=== PATIENT | female | born 2000 | race Hispanic/Latino ===

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

== ENCOUNTER 2020-07-17 13:39 | Emergency (ER) | payer BC, OTHER ==
--- OUTSIDE RECORDS SUMMARY | 2020-07-17 13:42 | XMS REPORT | Continuity of Care Document ---
:2000 Author Organization [facility] t Address [address] [place] [address] Care Team Providers Name Role Phone Ruddy Sarkar Attending Clinician Problems This patient has no known problems. Allergies, Adverse Reactions, Alerts This patient has no known allergies or adverse reactions. Medications This patient has no known medications. Procedures This patient has no known procedures. Encounters Start End Encounter Admission Attending Care Care Encounter Source Date/Time Date/Time Type Type Clinicians Facility Department ID 2020-07-15 2020-07-15 Routine ZAHEER Warren [id number] 07:55:25 08:43:04 Odalys Fox [facility] [id number] Visit REGIONAL [id number] MATERNAL [id number] & CHILD [address] [place] [address] Results This patient has no known results.
--- NOTE | 2020-07-17 14:48 | RAD REPORT ---
EXAM DESCRIPTION: RAD - Hand Right 3 View - 07/17/2020 2:41 pm CLINICAL HISTORY: hand injury, 4th finger COMPARISON: No comparisons FINDINGS: Small fracture is seen involving dorsal base of the distal phalanx of the fourth finger.
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
[2020-07-17 17:02] VITALS: TEMP 98.6
[2020-07-17 17:03] VITALS: BP 102/71; O2SAT 98
== END 2020-07-17 16:35 | disposition home or self-care (01) ==
LOC: ER 13:39
PROC: 2W3JX1Z Immobilization of Right Finger using Splint (ICD-10-PCS; principal; 2020-07-17)
DX: S62.666A Nondisplaced fracture of distal phalanx of right little finger, initial encounter for closed fracture (principal)
CPT/HCPCS: 99281

== ENCOUNTER 2021-08-26 21:46 | Emergency (ER) | payer BC, OTHER ==
[2021-08-26] MEDS ORDERED: ACETAMINOPHEN 500 MG TAB ONE (23:02)
[2021-08-26] MEDS ORDERED: NA CHLORIDE 0.9% 1,000 ML ONE (23:02)
[2021-08-26 23:23] LABS: Absolute Lymphocytes (CBC) 0.3 K/uL (0.7-4.9); Hematocrit 41.3 % (36.0-45.0); Lymphocytes % 7.1 % (15.3-44.8); MPV 9.1 fL (7.6-11.3); RBC Red Blood Cell Count 5.12 M/uL (3.86-4.86)
[2021-08-26 23:25] LABS: Protime INR 1.18
--- NOTE | 2021-08-27 00:16 | ER ---
Nurse's Notes [facility] Name: Pastora Strauss Age: 20 yrs Sex: Female : 2000 Arrival Date: 08/26/2021 Time: 21:56 Bed 25 Private MD: Diagnosis: SARS-associated coronavirus as the cause of diseases classified elsewhere Presentation: 08/26 22:22 Chief complaint: Patient states: last night I started getting a horrible headache and kd3 today I woke up and still had a headache and a runny nose and I just feel really sick. I took a home covid test yesterday and it was negative but the one I took today was positive. Coronavirus screen: Vaccine status: Patient reports receiving the 2nd dose of the covid vaccine. Ebola Screen: No symptoms or risks identified at this time. Initial Sepsis Screen: Does the patient meet any 2 criteria? Temp <36.0*C (96.8*F)) or > 38.3*C (100.9*F). HR > 90 bpm. Yes Does the patient have a suspected source of infection? No. Patient's initial sepsis screen is negative. Risk Assessment: Do you want to hurt yourself or someone else? Patient reports no desire to harm self or others. Onset of symptoms was August 26, 2021. 22:22 Method Of Arrival: Ambulatory kd3 22:22 Acuity: KRISTI 3 kd3 Triage Assessment: 22:22 Headache History: Denies prior headaches. General: Appears uncomfortable, Behavior is kd3 calm, cooperative. Pain: Complains of pain in headache Pain currently is 7 out of 10 on a pain scale. Pain began gradually, Also complains of no other associated symptoms. Neuro: Level of Consciousness is awake, alert, obeys commands, Oriented to person, place, time, situation. Respiratory: Airway is patent Trachea midline Respiratory effort is even, unlabored. 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 - Social history:: Smoking status: unknown. Screenin:15 Abuse screen: Denies threats or abuse. Nutritional screening: No deficits noted. jb4 Tuberculosis screening: No symptoms or risk factors identified. Fall Risk None identified. Assessment: 22:15 General: Appears in no apparent distress. comfortable, Behavior is calm, cooperative, jb4 appropriate for age. Pain: Complains of pain in headache Pain does not radiate. Pain currently is 5 out of 10 on a pain scale. Neuro: Level of Consciousness is awake, alert, obeys commands, Oriented to person, place, time, situation. Cardiovascular: Patient's skin is warm and dry. Respiratory: Airway is patent Respiratory effort is even, unlabored, Respiratory pattern is regular, symmetrical. Derm: Skin is intact, Skin is pink, warm \T\ dry. Musculoskeletal: Circulation, motion, and sensation intact. Range of motion: intact in all extremities. 23:30 Reassessment: Patient appears in no apparent distress at this time. Patient and/or jb4 family updated on plan of care and expected duration. Pain level reassessed. Patient is alert, oriented x 3, equal unlabored respirations, skin warm/dry/pink. 08/27 00:35 Reassessment: Patient appears in no apparent distress at this time. Patient and/or jb4 family updated on plan of care and expected duration. Pain level reassessed. Patient is alert, oriented x 3, equal unlabored respirations, skin warm/dry/pink. Vital Signs: 08/26 22:22 BP 118 / 75; Pulse 120; Resp 19; Temp 103; Pulse Ox 98% on R/A; kd3 22:28 Weight 88.45 kg; Height 5 ft. 7 in. (170.18 cm); Pain 7/10; kd3 08/27 00:13 BP 106 / 65; Pulse 109; Resp 18; Temp 100.2(TE); Pulse Ox 97% on R/A; jb4 08/26 22:28 Body Mass Index 30.54 (88.45 kg, 170.18 cm) 3 ED Course: 08/26 21:56 Patient arrived in ED. ja2 22:13 Francois Olea MD is Attending Physician. kdr 22:15 Patient has correct armband on for positive identification. Bed in low position. Call jb4 light in reach. Side rails up X 1. Client placed on continuous cardiac and pulse oximetry monitoring. NIBP monitoring applied. 22:24 Triage completed. kd3 22:29 Arm band placed on right wrist. kd3 22:31 [place], Gabe, RN is Primary Nurse. jb4 23:12 Inserted saline lock: 22 gauge in right antecubital area, using aseptic technique. Blood collected. 23:13 Blood Culture Adult (2) Sent. zm 23:13 CBC with Diff Sent. zm 23:13 CMP Sent. zm 23:13 Lactate Sent. zm 23:13 Protime (+inr) Sent. zm 23:13 Ptt, Activated Sent. zm 08/27 00:35 No provider procedures requiring assistance completed. IV discontinued, intact, jb4 bleeding controlled, No redness/swelling at site. Pressure dressing applied. Administered Medications: 08/26 22:53 Not Given (Duplicate Order): Tylenol 1000 mg PO once jb4 23:00 Drug: Acetaminophen 1000 mg Route: PO; jb4 08/27 00:13 Follow up: Response: No adverse reaction; Marked relief of symptoms; Temperature is jb4 decreased 08/26 23:01 Drug: NS 0.9% 1000 ml Route: IV; Rate: 1 bolus; Site: right antecubital; jb4 23:10 CANCELLED (Physician Discretion): ProTONIX (pantoprazole) 40 mg IVP once bb 23:10 CANCELLED (Physician Discretion): ProTONIX (pantoprazole) 8 mg/hr IV at 25 ml/hr bb continuous; (Standard dilution is 80 mg in 250 mL NS) 08/27 00:13 Not Given (Patient Refused): Bebtleovimab 1 vials IV at calculated rate once jb4 Medication: 00:35 VIS not applicable for this client. jb4 Outcome: 00:15 Discharge ordered by . kdr 00:35 Discharged to home ambulatory. jb4 00:35 Condition: stable 00:35 Discharge instructions given to patient, Instructed on discharge instructions, follow up and referral plans. medication usage, Demonstrated understanding of instructions, follow-up care, medications, Prescriptions given X 2. 00:35 Patient left the ED. jb4 Signatures: Francois Olea MD MD kdr Bryson, James, RN RN jb4 Izzy Huizar Kyli, RN RN kd3 Svitlana Garcia Brenda RN bb
--- NOTE | 2021-08-27 00:16 | EDPHYS ---
Physician Documentation [facility] Name: Pastora Strauss Age: 20 yrs Sex: Female : 2000 Arrival Date: 08/26/2021 Time: 21:56 Bed 25 Private MD: ED Physician Francois Olea HPI: 08/27 19:41 This 20 yrs old Female presents to ER via Ambulatory with complaints of Fever, kdr Headache, Sore Throat. 19:41 The patient started to have URI s/s yesterday with a JOAQUIN. She took a home COVID test kdr that was negative. She continued to have s/s and she retook a COVID test today and it was positive. She is o/w stable and non-toxic appearing.. Onset: The symptoms/episode began/occurred yesterday. Severity of symptoms: At their worst the symptoms were mild moderate just prior to arrival, in the emergency department the symptoms are unchanged. The patient has not experienced similar symptoms in the past. The patient has not recently seen a physician. 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 - Social history:: Smoking status: unknown. ROS: 08/27 19:41 Constitutional: Negative for fever, chills, and weight loss, Eyes: Negative for injury, kdr pain, redness, and discharge, Neck: Negative for injury, pain, and swelling, Cardiovascular: Negative for chest pain, palpitations, and edema, Respiratory: Negative for shortness of breath, cough, wheezing, and pleuritic chest pain, Abdomen/GI: Negative for abdominal pain, nausea, vomiting, diarrhea, and constipation, Back: Negative for injury and pain, : Negative for injury, bleeding, discharge, and swelling, MS/Extremity: Negative for injury and deformity, Skin: Negative for injury, rash, and discoloration, Neuro: Negative for headache, weakness, numbness, tingling, and seizure activity. Psych: Negative for depression, anxiety, suicide ideation, homicidal ideation, and hallucinations, Allergy/Immunology: Negative for hives, rash, and allergies, Endocrine: Negative for neck swelling, polydipsia, polyuria, polyphagia, and marked weight changes, Hematologic/Lymphatic: Negative for swollen nodes, abnormal bleeding, and unusual bruising. Constitutional: Positive for chills, fatigue, fever, malaise, Negative for ENT: Positive for nasal discharge, sore throat. Exam: 19:41 Constitutional: This is a well developed, well nourished patient who is awake, alert, kdr and in no acute distress. Head/Face: Normocephalic, atraumatic. Eyes: Pupils equal round and reactive to light, extra-ocular motions intact. Lids and lashes normal. Conjunctiva and sclera are non-icteric and not injected. Cornea within normal limits. Periorbital areas with no swelling, redness, or edema. Neck: Trachea midline, no thyromegaly or masses palpated, and no cervical lymphadenopathy. Supple, full range of motion without nuchal rigidity, or vertebral point tenderness. No Meningismus. Chest/axilla: Normal chest wall appearance and motion. Nontender with no deformity. No lesions are appreciated. Cardiovascular: Regular rate and rhythm with a normal S1 and S2. No gallops, murmurs, or rubs. Normal PMI, no JVD. No pulse deficits. Respiratory: Lungs have equal breath sounds bilaterally, clear to auscultation and percussion. No rales, rhonchi or wheezes noted. No increased work of breathing, no retractions or nasal flaring. Abdomen/GI: Soft, non-tender, with normal bowel sounds. No distension or tympany. No guarding or rebound. No evidence of tenderness throughout. Back: No spinal tenderness. No costovertebral tenderness. Full range of motion. Skin: Warm, dry with normal turgor. Normal color with no rashes, no lesions, and no evidence of cellulitis. MS/ Extremity: Pulses equal, no cyanosis. Neurovascular intact. Full, normal range of motion. Neuro: Awake and alert, GCS 15, oriented to person, place, time, and situation. Cranial nerves II-XII grossly intact. Motor strength 5/5 in all extremities. Sensory grossly intact. Cerebellar exam normal. Normal gait. Psych: Awake, alert, with orientation to person, place and time. Behavior, mood, and affect are within normal limits. Vital Signs: 08/26 22:22 BP 118 / 75; Pulse 120; Resp 19; Temp 103; Pulse Ox 98% on R/A; kd3 22:28 Weight 88.45 kg; Height 5 ft. 7 in. (170.18 cm); Pain 7/10; kd3 08/27 00:13 BP 106 / 65; Pulse 109; Resp 18; Temp 100.2(TE); Pulse Ox 97% on R/A; jb4 08/26 22:28 Body Mass Index 30.54 (88.45 kg, 170.18 cm) kd3 MDM: 00:15 Patient medically screened. kdr 19:41 Data reviewed: vital signs, nurses notes, lab test result(s), radiologic studies. kdr Counseling: I had a detailed discussion with the patient and/or guardian regarding: the historical points, exam findings, and any diagnostic results supporting the discharge/admit diagnosis, lab results, radiology results, the need for outpatient follow up. 08/26 22:14 Order name: COVID-19 SARS RT PCR (Document "Date of Onset" if Symptomatic); Complete kdr Time: 00:16 08/26 22:14 Order name: Flu; Complete Time: 00:16 kdr 08/26 22:14 Order name: Strep; Complete Time: 00:16 kdr 08/26 22:23 Order name: Blood Culture Adult (2) kdr 08/26 22:23 Order name: CBC with Diff; Complete Time: 00:16 kdr 08/26 22:23 Order name: CMP kdr 08/26 22:23 Order name: Lactate; Complete Time: 00:16 kdr 08/26 22:23 Order name: Protime (+inr); Complete Time: 00:16 kdr 08/26 22:23 Order name: Ptt, Activated; Complete Time: 00:16 kdr 08/26 23:08 Order name: Type And Screen kdr 08/26 23:38 Order name: Throat Culture EDGA 08/26 22:23 Order name: Accucheck; Complete Time: 00:13 kdr 08/26 22:23 Order name: Cardiac monitoring; Complete Time: 23:12 kdr 08/26 22:23 Order name: EKG - Nurse/Tech; Complete Time: 23:13 kdr 08/26 22:23 Order name: IV Saline Lock - Large Bore; Complete Time: 23:02 kdr 08/26 22:23 Order name: Labs collected and sent; Complete Time: 23:02 kdr 08/26 22:23 Order name: O2 Per Protocol; Complete Time: 22:53 kdr 08/26 22:23 Order name: O2 Sat Monitoring; Complete Time: 22:53 kdr Administered Medications: 08/26 22:53 Not Given (Duplicate Order): Tylenol 1000 mg PO once jb4 23:00 Drug: Acetaminophen 1000 mg Route: PO; jb4 08/27 00:13 Follow up: Response: No adverse reaction; Marked relief of symptoms; Temperature is jb4 decreased 08/26 23:01 Drug: NS 0.9% 1000 ml Route: IV; Rate: 1 bolus; Site: right antecubital; jb4 23:10 CANCELLED (Physician Discretion): ProTONIX (pantoprazole) 40 mg IVP once bb 23:10 CANCELLED (Physician Discretion): ProTONIX (pantoprazole) 8 mg/hr IV at 25 ml/hr bb continuous; (Standard dilution is 80 mg in 250 mL NS) 08/27 00:13 Not Given (Patient Refused): Bebtleovimab 1 vials IV at calculated rate once jb4 Disposition Summary: 08/27/21 00:15 Discharge Ordered Location: Home kdr Problem: new kdr Symptoms: have improved kdr Condition: Stable kdr Diagnosis - SARS-associated coronavirus as the cause of diseases classified elsewhere kdr Followup: kdr - With: Private Physician - When: 2 - 3 days - Reason: If symptoms return, Further diagnostic work-up, Recheck today's complaints, Continuance of care, Re-evaluation by your physician Discharge Instructions: - Discharge Summary Sheet kdr - COVID-19 Frequently Asked Questions kdr - 3 Hong Steps to Take While Waiting for Your COVID-19 Test Result - [facility] kdr - 10 Things You Can Do to Manage Your COVID-19 Symptoms at Home - [facility] kdr - COVID-19: Quarantine vs. Isolation - CDC kdr Forms: - Medication Reconciliation Form kdr - Thank You Letter kdr Prescriptions: - Ibuprofen 600 mg Oral Tablet - take 1 tablet by ORAL route every 6 hours As needed take with food; 30 tablet; kdr Refills: 0, Product Selection Permitted - Zofran 4 mg Oral Tablet - take 1 tablet by ORAL route every 4-6 hours As needed; 12 tablet; Refills: 0, kdr Product Selection Permitted Signatures: Dispatcher [employer] EDGA Francois Olea MD MD kdr Gabe Garber RN RN jb4 Macie Jones RN RN kd3 Maryuri Lee RN bb Corrections: (The following items were deleted from the chart) 08/26 23:10 23:08 ProTONIX (pantoprazole) 40 mg IVP once ordered. kdr bb 23:10 23:08 ProTONIX (pantoprazole) 8 mg/hr IV at 25 ml/hr continuous; (Standard dilution is bb 80 mg in 250 mL NS) ordered. kdr 23: 23:09 Abdomen Pelvis W Con+CT.RAD.BRZ ordered. EDMS EDMS 08/27 00:13 08/26 22:23 Urine Dipstick-Ancillary ordered. kdr jb4
[2021-08-27 00:57] LABS: Albumin 4.6 g/dL (3.4-5.0); Bilirubin Total 0.3 mg/dL (0.2-1.0); Potassium 3.4 mmol/L (3.5-5.1); Protein, Total 8.4 g/dL (6.4-8.2)
[2021-08-27] MEDS ORDERED: LIDOCAINE 1% 20 ML MDV ONE (01:23)
[2021-08-27 01:52] VITALS: BP 106/65; TEMP 100.2; O2SAT 97
--- NOTE | 2021-08-27 12:54 | EKG ---
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
== END 2021-08-27 00:35 | disposition home or self-care (01) ==
LOC: ER 21:46
DX: U07.1 COVID-19 (principal)
CPT/HCPCS: 93005; 87040 ×2; 87070; 85025; 36415; 87205; 85610; 87081; 83605; 85730; 80053; 87804 ×2; U0003; J7030

== ENCOUNTER 2023-10-17 00:28 | Emergency (ER) | payer OTHER, SELFPAY ==
[2023-10-17 01:54] LABS: Specific Gravity > 1.030 (1.005-1.030)
[2023-10-17 05:01] LABS: Absolute Basophils 0.1 K/uL (0-0.5); Absolute Eosinophils 0.1 K/uL (0-0.5); Absolute Lymphocytes (CBC) 3.5 K/uL (0.7-4.9); Absolute Monocytes 0.5 K/uL (0.1-1.3); Absolute Neutrophil 5.3 K/uL (1.8-8.0); Basophils % 0.7 % (0-1.3); Eosinophils % 1.5 % (0-4.4); Hematocrit 40.2 % (36.0-45.0); Hemoglobin 13.2 g/dL (12.0-15.0); Lymphocytes % 36.5 % (15.3-44.8); MCH 28.4 pg (27.0-35.0); MPV 8.9 fL (7.6-11.3); Monocytes % 5.6 % (3.3-12.3); Neutrophils % 55.7 % (41.7-73.7); Nucleated Red Blood Cells % 0.1 % (0-0); Platelets 224 thou/uL (152-406); RBC Red Blood Cell Count 4.67 M/uL (3.86-4.86); Red Cell Distribution Width 13.4 % (12.1-15.2)
[2023-10-17 05:09] LABS: PT Prothrombin Time 11.1 SECONDS (9.4-12.5); Protime INR 0.99
[2023-10-17 05:19] LABS: Albumin 3.6 g/dL (3.4-5.0); Anion Gap 9.6 mEq/L (5.0-15.0); Bilirubin Total 0.2 mg/dL (0.2-1.0); Globulin 3.6 g/dL (2.3-3.5); Potassium 3.6 mEq/L (3.5-5.1); Protein, Total 7.2 g/dL (6.4-8.2)
--- NOTE | 2023-10-17 05:20 | EDPHYS ---
Physician Documentation [facility] Name: Pastora Strauss Age: 22 yrs Sex: Female : 2000 Arrival Date: 10/17/2023 Time: 00:28 Bed 5 Private MD: ED Physician Jignesh Mcneil HPI: 10/16 01:15 This 22 yrs old Female presents to ER via Ambulatory with complaints of Rectal ec2 Bleeding. 01:15 Patient arrives today for evaluation of rectal bleeding. States that she had some blood ec2 in her stool when she had a bowel movement, subsequently had to go again and noted. Blood. Patient reports no rectal pain, denies history of similar symptoms. Patient reports no constipation recently. Denies history of IBD.. 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 - Infectious Disease History:: Denies. - Social history:: Smoking status: Patient denies any tobacco usage or history of. ROS: 01:15 Constitutional: as per hpi ec2 Exam: 01:15 Constitutional: GEN: NAD Head: atraumatic Eyes: EOMI Ears: External ears are ec2 normal. CV: regular rate LUNGS: no respiratory distress ABD: non-distended, soft, nontender, not rigid. SKIN: no evidence of rashes MSK: no evidence of trauma Vital Signs: 01:07 BP 122 / 85; Pulse 85; Resp 17; Temp 96.3; Pulse Ox 98% ; Weight 83.91 kg; Height 5 ft. vc1 7 in. ; Pain 0/10; 04:56 BP 108 / 65; Pulse 78; Resp 18; Pulse Ox 99% ; Pain 0/10; jh8 05:24 BP 112 / 67; Pulse 78; Resp 18; Temp 98; Pulse Ox 99% ; Pain 0/10; jh8 01:07 Body Mass Index 28.97 (83.91 kg, 170.18 cm) vc1 01:07 Pain Scale: Adult vc1 04:56 Pain Scale: Adult jh8 05:24 Pain Scale: Adult jh8 MDM: 01:15 Data reviewed: vital signs. ED course: Patient arrives today for evaluation of rectal ec2 bleeding. Examination remarkable for well-appearing nontoxic dividual otherwise in no acute distress. Will obtain lab work, CT imaging. Differential includes diverticulosis, anal fissure, hemorrhoids. Evaluated for anemia as well. . 01:41 Patient medically screened. ec2 03:52 ED course: CT abdomen pelvis shows evidence of diverticulosis without diverticulitis, ec2 suspect this is the source of the patient's bleeding.. 05:12 ED course: CBC is reassuring. Coag profile is unremarkable, testing negative. ec2 . 05:19 ED course: Lab work nonactionable. Will discharge home. Presentation consistent with ec2 diverticulosis. Instructed on fiber intake. Return precautions given. 10/16 01:15 Order name: Test, Urine; Complete Time: 01:56 ec2 10/16 01:15 Order name: CBC with Diff; Complete Time: 05:12 ec2 10/16 01:15 Order name: CMP; Complete Time: 05:19 ec2 10/16 01:15 Order name: PT-INR; Complete Time: 05:12 ec2 18 01:15 Order name: Ptt, Activated; Complete Time: 05:12 ec2 10/16 01:15 Order name: CT Abd/Pelvis - Without Contrast ec2 Administered Medications: No medications were administered Disposition Summary: 10/17/23 05:19 Discharge Ordered Notes: Location: Home ec2 Condition: Stable ec2 Diagnosis - Diverticulosis of large intestine without perforation or abscess with bleeding ec2 Followup: ec2 - With: Private Physician - When: - Reason: Re-evaluation by your physician Discharge Instructions: - Discharge Summary Sheet ec2 - High-Fiber Eating Plan ec2 - Diverticulosis ec2 Forms: - Medication Reconciliation Form ec2 - Antibiotic Education ec2 - Prescription Opioid Use ec2 - Patient Portal Instructions ec2 - Leadership Thank You Letter ec2 Signatures: Dispatcher [employer] Tiffanie Tovar RN RN vc1 Jignesh Mcneil MD MD ec2
--- NOTE | 2023-10-17 05:20 | ER ---
Nurse's Notes [facility] Name: Pastora Strauss Age: 22 yrs Sex: Female : 2000 Arrival Date: 10/17/2023 Time: 00:28 Bed 5 Private MD: Diagnosis: Diverticulosis of large intestine without perforation or abscess with bleeding Presentation: 10/16 01:07 Chief complaint: Patient states: When I wiped after using the restroom I saw blood. vc1 Coronavirus screen: Client denies travel out of the [place] in the last 14 days. At this time, the client does not indicate any symptoms associated with coronavirus-19. Ebola Screen: Patient negative for fever greater than or equal to 101.5 degrees Fahrenheit, and additional compatible Ebola Virus Disease symptoms Patient denies exposure to infectious person. Patient denies travel to an Ebola-affected area in the 21 days before illness onset. No symptoms or risks identified at this time. Initial Sepsis Screen: Does the patient meet any 2 criteria? No. Patient's initial sepsis screen is negative. Does the patient have a suspected source of infection? No. Patient's initial sepsis screen is negative. Risk Assessment: Do you want to hurt yourself or someone else? Patient reports no desire to harm self or others. Onset of symptoms was October 17, 2023. 01:07 Method Of Arrival: Ambulatory vc1 01:07 Acuity: KRISTI 3 vc1 Triage Assessment: 01:11 General: Appears in no apparent distress. comfortable, obese, well groomed, well vc1 developed, emaciated, Behavior is calm, cooperative, appropriate for age. Pain: Denies pain. EENT: No deficits noted. No signs and/or symptoms were reported regarding the EENT system. Neuro: Level of Consciousness is awake, alert, obeys commands, Oriented to person, place, time, situation, Appropriate for age. Cardiovascular: No deficits noted. Respiratory: Airway is patent Respiratory effort is even, unlabored, Respiratory pattern is regular, symmetrical, Breath sounds are clear bilaterally. GI: Abdomen is round non-distended, Reports bloody stool. GI: Bowel sounds present X 4 quads. Abd is soft and non tender. : No deficits noted. No signs and/or symptoms were reported regarding the genitourinary system. Derm: Skin is intact, is healthy with good turgor, Skin is dry, Skin is normal, Skin temperature is warm. Musculoskeletal: Circulation, motion, and sensation intact. Range of motion: intact in all extremities. 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 - Infectious Disease History:: Denies. - Social history:: Smoking status: Patient denies any tobacco usage or history of. Screenin:09 [facility] ED Fall Risk Assessment (Adult) History of falling in the last 3 months, vc1 including since admission No falls in past 3 months (0 pts) Confusion or Disorientation No (0 pts) Intoxicated or Sedated No (0 pts) Impaired Gait No (0 pts) Mobility Assist Device Used No (0 pt) Altered Elimination No (0 pt) Score/Fall Risk Level 0 - 2 = Low Risk Oriented to surroundings, Maintained a safe environment, Educated pt \T\ family on fall prevention, incl call for assistance when getting out of bed. Abuse screen: Denies threats or abuse. Nutritional screening: No deficits noted. Tuberculosis screening: No symptoms or risk factors identified. Assessment: 01:10 General: Appears in no apparent distress. comfortable, obese, well groomed, well vc1 developed, well nourished, Behavior is calm, cooperative, appropriate for age. Pain: Denies pain. GI: Reports bloody stool. Vital Signs: 01:07 BP 122 / 85; Pulse 85; Resp 17; Temp 96.3; Pulse Ox 98% ; Weight 83.91 kg; Height 5 ft. vc1 7 in. ; Pain 0/10; 04:56 BP 108 / 65; Pulse 78; Resp 18; Pulse Ox 99% ; Pain 0/10; jh8 05:24 BP 112 / 67; Pulse 78; Resp 18; Temp 98; Pulse Ox 99% ; Pain 0/10; jh8 01:07 Body Mass Index 28.97 (83.91 kg, 170.18 cm) vc1 01:07 Pain Scale: Adult vc1 04:56 Pain Scale: Adult jh8 05:24 Pain Scale: Adult 8 ED Course: 00:31 Patient arrived in ED. ra3 01:01 Jignesh Mcneil MD is Attending Physician. ec2 01:09 Triage completed. vc1 01:09 Arm band placed on right wrist. vc1 02:04 CT Abd/Pelvis - Without Contrast In Process Unspecified. EDMS 04:51 Silvana Alonzo is Primary Nurse. cp4 04:56 No provider procedures requiring assistance completed. Inserted saline lock: 22 gauge jh8 in left hand, using aseptic technique. 05:24 Patient has correct armband on for positive identification. Fall risk band placed. jh8 Placed in gown. Bed in low position. Call light in reach. Provided Education on: follow up. 05:24 IV discontinued. jh8 Administered Medications: No medications were administered Medication: 01:10 VIS not applicable for this client. vc1 Outcome: 05:19 Discharge ordered by . ec2 05:23 Discharged to home 8 05:23 Condition: good 05:23 Discharge instructions given to patient, Instructed on discharge instructions, follow up and referral plans. Demonstrated understanding of instructions, follow-up care, Prescriptions given X 05:25 Patient left the ED. jh8 Signatures: Dispatcher [employer] EDGA Tiffanie Bauer, RN RN vc1 Jignesh Mcneil MD MD ec2 Silvana Alonzo cp4 Meliza Hernandez ra3 Boyd Schwarz, RN RN jh8
[2023-10-17 05:40] VITALS: O2SAT 99
[2023-10-17 05:46] VITALS: BP 112/67; TEMP 98
--- OUTSIDE RECORDS SUMMARY | 2023-10-19 11:57 | XMS REPORT | Continuity of Care Document ---
Author Name Unknown Address [address] [facility] [address] [place] [address] [facility] thconnect Address [address] [facility] [place] [address] Care Team Providers Care Paper Baler Name Role Phone ROSEY JNUG Primary Care Physician Unava ilODALYS Lynch Attending Clinician Unavail able Visit, SuhasRmchsindhu Nurse Attending Clinician Unava ilOdalys Sarabia Attending Clinician + Doctor Unassigned, [place] Attending Clinician U navailable SHAINA_BALDEV Attending Clinician Unavailable Felisha Eastman RN Attending Clinician Unavailable MIGDALIA RODRIGUEZ Attending Clinician Unavailable Only, Jens Db Test Attending Clinician Unavailabl e Unknown, Attending Attending Clinician Unavailab ELIDA Gardiner Attending Clinician Unavailab Elida Gibbons Attending Clinician + [phone] Liz Harrington Attending Clinician [phone] LIZ LENNON Attending Clinician Unavailabl e gladys Attending Clinician Unavailable MAHI JUAREZ Attending Clinician Unavailable STEVE SARAH Attending Clinician Unavailabl e SHAYAN CRONIN Attending Clinician Unavailab BOBBI Laird Attending Clinician Unavail able ASHTYN LYONS Attending Clinician Unavailable MIGUEL AGUILAR Attending Clinician Unavailable KANDICE BEARDEN Attending Clinician Unavailab vincent LY Admitting Clinician Unavailable gladys Admitting Clinician Unavailable Payers Payer Name Policy Type Policy Number Effective Date Expirati on Date Source [place] OUT [place] [id number] 2019 00:00:00 [facility] [id number] 2019 00:00:00 [place] [id number] 2019 00:00:00 MEDICAID PENDING PENDING 2019 00:00:00 Problems Condition Name Condition Details Condition Category Status Onset Date Resolution Date Last Treatment Date Treating Clinician Comments Source Other general counseling and advice for contracept yvonne management Other general counseling and advice for contracept yvonne management Disease Active 607 00:00: 00 [facility] Hematoma of labia majora Hematoma of labia majora Disease Active 4-13 00:00: 00 [facility] Susceptibl e to varicella (non-immun e), currently Susceptibl e to varicella (non-immun e), currently Disease Active 8 00:00: 00 [facility] Over weight Over weight Disease Active 10-26 00:00: 00 [facility] Allergies, Adverse Reactions, Alerts Allergy Name Allergy Type Status Severity Reaction(s) Onset Date Inactive Date Treating Clinician Comments Source NO KNOWN ALLERGIE S Drug Class Active [facility] Social History Social Habit Start Date Stop Date Quantity Comments Source [facility] Exposure to SARS-CoV-2 (event) 2022-06-05 00:00:00 2022-06-15 10:35:00 Not sure [facility] History of Social function 2021-07-07 00:00:00 2021-07-07 00:00:00 [facility] Alcohol intake 2019-12-28 00:00:00 2019-12-28 00:00:00 Ex-drinker (finding) [facility] Tobacco use and exposure 2019-10-27 00:00:00 2019-10-27 00:00:00 Smokeless tobacco non-user [facility] Sex Assigned At 2000 00:00:00 2000 00:00:00 [facility] Smoking Status Start Date Stop Date Source Never smoked tobacco [facility] Medications Ordered Medication Name Filled Medication Name Start Date Stop Date Current Medication? Ordering Clinician Indication Dosage Frequency Signature (SIG) Comments Components Source medroxyPROG ESTERone (DEPO-PROVE RA) syringe 150 mg 2021-03 0 16:30: 00 06-15 15:54 :00 No [id number] 150mg 150 mg, Intramuscu lar, [id number], 3 doses, First dose on Wed12/22/21 at 1130, Last dose on Wed06/08/22 at 1130, Routine [facility] medroxyPROG ESTERone (DEPO-PROVE RA) injection 150 mg 09-29 19:45: 00 08-31 19:44 :00 No [id number] 150mg 150 mg, Intramuscu lar, [id number], 4 doses, First dose on Wed09/29/21 at 1445, Last dose on Wed06/08/22 at 1445, Routine [facility] medroxyPROG ESTERone (DEPO-PROVE RA) injection 150 mg 08-05 15:00: 00 01-20 21:21 :00 No [id number] 150mg Univer s [facility] Immunizations Ordered Immunization Name Filled Immunization Name Date Status Comments Source 9 2021-01-20 00:00:00 Completed [facility] HPV9 2021-01-20 00:00:00 Completed [facility] HPV9 2021-01-20 00:00:00 Completed [facility] HPV9 2021-01-20 00:00:00 Completed [facility] HPV9 2021-01-20 00:00:00 Completed [facility] HPV9 2021-01-20 00:00:00 Completed [facility] HPV9 2021-01-20 00:00:00 Completed [facility] HPV9 2021-01-20 00:00:00 Completed [facility] HPV9 2021-01-20 00:00:00 Completed [facility] HPV9 2020-07-15 00:00:00 Completed [facility] HPV9 2020-07-15 00:00:00 Completed [facility] HPV9 2020-07-15 00:00:00 Completed [facility] HPV9 2020-07-15 00:00:00 Completed [facility] HPV9 2020-07-15 00:00:00 Completed [facility] HPV9 2020-07-15 00:00:00 Completed [facility] HPV9 2020-07-15 00:00:00 Completed [facility] HPV9 2020-07-15 00:00:00 Completed [facility] HPV9 2020-07-15 00:00:00 Completed [facility] HPV9 2020-06-10 00:00:00 Completed [facility] HPV9 2020-06-10 00:00:00 Completed [facility] HPV9 2020-06-10 00:00:00 Completed [facility] HPV9 2020-06-10 00:00:00 Completed [facility] HPV9 2020-06-10 00:00:00 Completed [facility] HPV9 2020-06-10 00:00:00 Completed [facility] HPV9 2020-06-10 00:00:00 Completed [facility] HPV9 2020-06-10 00:00:00 Completed [facility] HPV9 2020-06-10 00:00:00 Completed [facility] TDAP 2020-03-29 00:00:00 Completed [facility] TDAP 2020-03-29 00:00:00 Completed [facility] TDAP 2020-03-29 00:00:00 Completed [facility] TDAP 2020-03-29 00:00:00 Completed [facility] TDAP 2020-03-29 00:00:00 Completed [facility] TDAP 2020-03-29 00:00:00 Completed [facility] TDAP 2020-03-29 00:00:00 Completed [facility] TDAP 2020-03-29 00:00:00 Completed [facility] TDAP 2020-03-29 00:00:00 Completed [facility] Influenza Virus Vaccine Quad .5 mL IM 6+ MO 2019 00:00:00 Completed [facility] Influenza Virus Vaccine Quad .5 mL IM 6+ MO 2019 00:00:00 Completed [facility] Influenza Virus Vaccine Quad .5 mL IM 6+ MO 2019 00:00:00 Completed [facility] Influenza Virus Vaccine Quad .5 mL IM 6+ MO 2019 00:00:00 Completed [facility] Influenza Virus Vaccine Quad .5 mL IM 6+ MO 2019 00:00:00 Completed [facility] Influenza Virus Vaccine Quad .5 mL IM 6+ MO 2019 00:00:00 Completed [facility] Influenza Virus Vaccine Quad .5 mL IM 6+ MO 2019 00:00:00 Completed [facility] Influenza Virus Vaccine Quad .5 mL IM 6+ MO 2019 00:00:00 Completed [facility] Influenza Virus Vaccine Quad .5 mL IM 6+ MO 2019 00:00:00 Completed [facility] Influenza Virus Vaccine Quad .5 mL IM 6+ MO (FLUZONE/FLULAVAL/F LUARIX) Unknown Completed [facility] TDAP Unknown Completed [facility] HPV9 Unknown Completed [facility] HPV9 Unknown Completed [facility] Influenza Virus Vaccine Quad .5 mL IM 6+ MO (FLUZONE/FLULAVAL/F LUARIX) Unknown Completed [facility] TDAP Unknown Completed [facility] Influenza Virus Vaccine Quad .5 mL IM 6+ MO (FLUZONE/FLULAVAL/F LUARIX) Unknown Completed [facility] Vital Signs Vital Name Observation Time Observation Value Comments S ource Systolic blood pressure 2022-09-07 18:24:00 114 mm[Hg] [facility] Diastolic blood pressure 2022-09-07 18:24:00 70 mm[Hg] [facility] Heart rate 2022-09-07 18:24:00 68 /min [facility] Body temperature 2022-09-07 18:24:00 35.94 Peg [facility] Respiratory rate 2022-09-07 18:24:00 18 /min [facility] Body height 2022-09-07 18:24:00 170.2 cm [facility] Body weight 2022-09-07 18:24:00 98.431 kg [facility] BMI 2022-09-07 18:24:00 33.99 kg/m2 [facility] Systolic blood pressure 2022-06-15 15:35:00 125 mm[Hg] [facility] Diastolic blood pressure 2022-06-15 15:35:00 79 mm[Hg] [facility] Heart rate 2022-06-15 15:35:00 73 /min [facility] Body temperature 2022-06-15 15:35:00 36.17 Peg [facility] Respiratory rate 2022-06-15 15:35:00 18 /min [facility] Body height 2022-06-15 15:35:00 170.2 cm [facility] Body weight 2022-06-15 15:35:00 100.29 kg [facility] BMI 2022-06-15 15:35:00 34.63 kg/m2 [facility] Systolic blood pressure 2022-03-17 17:00:00 131 mm[Hg] [facility] Diastolic blood pressure 2022-03-17 17:00:00 83 mm[Hg] [facility] Heart rate 2022-03-17 17:00:00 81 /min [facility] Body temperature 2022-03-17 17:00:00 36.56 Peg [facility] Respiratory rate 2022-03-17 17:00:00 18 /min [facility] Body weight 2022-03-17 17:00:00 99.61 kg [facility] BMI 2022-03-17 17:00:00 34.39 kg/m2 [facility] Systolic blood pressure 2021 15:15:00 130 mm[Hg] [facility] Diastolic blood pressure 2021 15:15:00 80 mm[Hg] [facility] Heart rate 2021 15:15:00 82 /min [facility] Body temperature 2021 15:15:00 36.56 Peg [facility] Respiratory rate 2021 15:15:00 17 /min [facility] Body height 2021 15:15:00 170.2 cm [facility] Body weight 2021 15:15:00 97.206 kg [facility] BMI 2021 15:15:00 33.56 kg/m2 [facility] Procedures Procedure Date / Time Performed Performing Clinicia n Source [facility] PATIENT FINANCIAL POLICY 2022-06-15 15:25:37 Doctor Unassigned, [place] [facility] ASSIGNMENT OF BENEFITS 2021 14:56:08 Docto r Unassigned, [place] [facility] Encounters Start Date/Time End Date/Time Encounter Type Admission Type Attending Clinicians Care Facility Care Department Encounter ID Source 2020-12-29 12:04:44 Outpatient [facility] [id number] [facility] 2020-12-28 01:50:33 Emergency [facility] [id number] [facility] 2022-12-01 09:15:00 2022-12-01 09:15:00 Outpatient ODALYS DOTY [facility] [id number] [facility] 2022-09-07 13:30:00 2022-09-07 13:43:58 Outpatient ODALYS DOTY [facility] [id number] [facility] 2022-09-07 13:30:00 2022-09-07 13:43:58 Nurse Visit Visit, MarkoschOdalys Rajput [facility] CAR REPAIR SUPERVISOR [facility] [id number] 350.1.13.10 4.2.7.2.686 [id number] [facility] 2022-06-15 10:00:00 2022-06-15 10:48:23 Nurse Visit Visit, Odalys Joy [facility] CAR REPAIR SUPERVISOR [facility] 1.2840.114 350.1.13.10 4.2.7.2.686 [id number] [facility] 2022-06-15 10:00:00 2022-06-15 10:00:00 Outpatient R ODALYS WARREN [facility] [id number] [facility] 2022-06-15 00:00:00 2022-06-15 00:00:00 Orders Only Doctor Unassigned, [place] [facility] 1.2840.114 350.1.13.10 4.2.7.2.686 [id number] [facility] 2022-06-15 00:00:00 2022-06-15 00:00:00 Telephone Odalys Warren [facility] CAR REPAIR SUPERVISOR [facility] CHILD [facility] 1.20.114 350.1.13.10 4.2.7.2.686 [id number] [facility] 2022-03-17 11:00:00 2022-03-17 11:00:00 Nurse Visit Visit, Odalys Joy [facility] 1.2840.114 350.1.13.10 4.2.7.2.686 [id number] [facility] 2022-03-17 11:00:00 2022-03-17 10:59:39 Outpatient R ODALYS WARREN [facility] [id number] [facility] 2021 10:00:00 2021 10:33:25 Nurse Visit Visit, Odalys Joy [facility] CAR REPAIR SUPERVISOR [facility] [id number] 350.1.13.10 4.2.7.2.686 [id number] [facility] 2021 10:00:00 2021 10:00:00 Outpatient R ODALYS WARREN [facility] [id number] [facility] 2021 10:00:00 2021 10:00:00 Outpatient R ODALYS WARREN [facility] [id number] [facility] 2021 00:00:00 2021 00:00:00 Orders Only Doctor Unassigned, [place] [facility] 1..840.114 350.1.13.10 4.2.7.2.686 [id number] [facility] 2021-10-21 00:00:00 2021-10-21 00:00:00 Telephone Odalys Warren [facility] CAR REPAIR SUPERVISOR [facility] CHILD [facility] 1..840.114 350.1.13.10 4.2.7.2.686 [id number] [facility] 2021-09-29 13:30:00 2021-09-29 14:51:23 Outpatient R ODALYS WARREN [facility] [id number] [facility] 2021-09-29 13:30:00 2021-09-29 14:51:23 Office Visit Odalys Warren [facility] CAR REPAIR SUPERVISOR [facility] 1..840.114 350.1.13.10 4.2.7.2.686 [id number] [facility] 2021-09-29 13:30:00 2021-09-29 14:51:23 Outpatient R ODALYS WARREN [facility] [id number] [facility] 2021-09-29 13:30:00 2021-09-29 14:51:23 Outpatient R ODALYS WARREN [facility] [id number] [facility] 2021-09-09 05:19:00 2021-09-09 05:19:00 Outpatient ALIYAH ALMICHELLE [facility] [id number] Calvin barber [facility] 2021-09-01 00:00:00 2021-09-01 00:00:00 Letter (Out) Felisha Eastman [facility] 1.84.114 350.1.13.10 4.2.7.2.686 [id number] [facility] 2021-08-31 13:30:00 2021-08-31 14:40:24 Outpatient R MIGDALIA RODRIGUEZ [facility] [id number] [facility] 2021-08-31 13:30:00 2021-08-31 13:45:00 Laboratory Only Only, Ang Db Test Unknown, Attending [facility] 1.84.114 350.1.13.10 4.2.7.2.686 [id number] [facility] 2021-07-07 13:00:00 2021-07-07 13:22:00 Outpatient ELIDA MCKEON [facility] [id number] [facility] 2021-07-07 13:00:00 2021-07-07 13:22:00 Nurse Visit Visit, SuhasRmchp Elida Thomas [facility] CAR REPAIR SUPERVISOR [facility] CHILD [facility] 1..114 350.1.13.10 4.2.7.2.686 [id number] [facility] 2021-04-14 10:00:00 2021-04-14 10:31:33 Nurse Visit Visit, SuhasRmchp Elida Thomas [facility] CAR REPAIR SUPERVISOR [facility] CHILD [facility] 1..114 350.1.13.10 4.2.7.2.686 [id number] [facility] 2021-04-14 10:00:00 2021-04-14 10:00:00 Outpatient R ELIDA RIDDLE [facility] [id number] [facility] 2021-01-20 14:16:27 2021-01-20 14:30:35 Nurse Visit Visit, Ang-Rmp Liz Barrow [facility] CAR REPAIR SUPERVISOR [facility] [id number] 350.1.13.10 4.2.7.2.686 [id number] [facility] 2021-01-20 14:00:00 2021-01-20 14:30:35 Outpatient R LIZ LENNON [facility] [id number] [facility] 2020-10-28 09:33:25 2020-10-28 09:58:36 [facility] ..840.114 350.1.13.10 4.2.7.2.686 [id number] [facility] 2020-10-28 09:30:00 2020-10-28 09:30:00 Outpatient R [facility] [id number] [facility] 2020-08-12 00:00:00 2020-08-12 00:00:00 Patient Secure Msg Odalys Warren [facility]840.114 350.1.13.10 4.2.7.2.686 [id number] [facility] 2020-08-09 08:30:00 2020-08-09 08:30:00 Outpatient R [facility] [id number] [facility] 2020-08-05 09:15:00 2020-08-05 09:15:00 Outpatient R ODALYS WARREN [facility] [id number] [facility] 2020-07-15 07:55:25 2020-07-15 08:43:04 Routine Visit Odalys Warren [facility] CAR REPAIR SUPERVISOR [facility] [id number] 350.1.13.10 4.2.7.2.686 [id number] 2020-07-15 08:00:00 2020-07-15 08:00:00 Outpatient ODALYS DOTY [facility] [id number] [facility] 2020-07-08 07:45:00 2020-07-08 07:45:00 Outpatient R ODALYS WARREN [facility] [id number] [facility] 2020-06-07 09:00:00 2020-06-07 09:00:00 Outpatient R ODALYS WARREN [facility] [id number] [facility] 2020-05-31 08:30:00 2020-05-31 08:30:00 Outpatient R ODALYS WARRNE [facility] [id number] [facility] 2020-05-24 11:00:00 2020-05-24 11:00:00 Outpatient R ODALYS WARREN [facility] [id number] [facility] 2020-05-10 09:45:00 2020-05-10 09:45:00 Outpatient R ODALYS WARREN [facility] [id number] [facility] 2020-04-26 09:30:00 2020-04-26 09:30:00 Outpatient R ODALYS WARREN [facility] [id number] [facility] 2020-04-12 11:00:00 2020-04-12 11:00:00 Outpatient R ODALYS WARREN [facility] [id number] [facility] 2020-03-29 09:00:00 2020-03-29 09:00:00 Outpatient R ODALYS WARREN [facility] [id number] [facility] 2020-03-29 00:00:00 2020-03-29 00:00:00 Patient Secure Msg Doctor Unassigned, [place] [facility] CAR REPAIR SUPERVISOR [facility] CHILD [facility] [id number] 350.1.13.10 4.2.7.2.686 [id number] [facility] 2020-03-15 12:45:00 2020-03-15 12:45:00 Outpatient R AKINODALYS PARRA [facility] [id number] [facility] 2020-02-16 08:00:00 2020-02-16 08:00:00 Outpatient R AKINODALYS PARRA [facility] [id number] [facility] 2020-01-29 10:30:00 2020-01-29 10:30:00 Outpatient P [facility] [id number] [facility] 2020-01-19 08:00:00 2020-01-19 08:00:00 Outpatient R ODALYS WARREN [facility] [id number] [facility] 2019-12-28 00:00:00 2019-12-28 00:00:00 Patient Secure Msg Doctor Unassigned, [place] [facility] CAR REPAIR SUPERVISOR [facility] CHILD [facility] [id number] 350.1.13.10 4.2.7.2.686 [id number] [facility] 2019 08:00:00 2019 08:00:00 Outpatient R AKINODALYS PARRA [facility] [id number] [facility] 2019-11-28 14:00:00 2019-11-28 14:00:00 Outpatient P [facility] [id number] [facility] 2019-11-24 09:45:00 2019-11-24 09:45:00 Outpatient R AKINODALYS PARRA [facility] [id number] [facility] 2019-10-31 08:30:00 2019-10-31 08:30:00 Outpatient R [facility] [id number] [facility] 2019-10-27 08:00:00 2019-10-27 08:00:00 Outpatient R ODALYS WARREN [facility] [id number] [facility] 2019-06-21 11:30:00 2019-06-21 11:30:00 Outpatient gladys MMBrionna [facility] [id number] [facility] 2017-10-21 13:18:00 2017-10-21 14:54:00 Emergency ER MAHI JUAREZ [facility] [id number] [facility] 2017-01-18 18:13:00 2017-01-18 20:20:00 Emergency ER STEVE SARAH [facility] [id number] [facility] 2017-01-06 12:13:00 2017-01-06 15:36:00 Emergency ER SHAYAN CRONIN [facility] [id number] [facility] 2016-11-10 12:29:00 2016-11-10 13:20:00 Emergency ER BOBBI MCDONALD [facility] [id number] [facility] 2016-02-27 13:46:00 2016-02-27 16:35:00 Emergency ER ASHTYN LYONS [facility] [id number] [facility] 2016-02-21 21:00:00 2016-02-21 22:37:00 Emergency ER MIGUEL AGUILAR [facility] [id number] [facility] 2013-09-29 23:27:00 2013-09-30 01:29:00 Emergency ER KANDICE BEARDEN [facility] [id number] [facility]
--- NOTE | 2023-10-19 14:21 | RAD REPORT ---
EXAM DESCRIPTION: CT - Abdomen Pelvis Wo Contrast - 10/19/2023 2:05 pm CLINICAL HISTORY: 22 years, Female, Abdominal pain. COMPARISON: CT Abdomen pelvis 01/06/2017. TECHNIQUE: Noncontrast images of the abdomen and pelvis were performed from the lung bases to the is chial tuberosities. In addition multiplanar reformats in the coronal and sagittal plane were obtained and reviewed. An individualized dose optimization technique, Automated Exposure Control, was utilized for the perfo rmed procedure. FINDINGS: The lack of IV contrast limits evaluation of solid organs, subtle lesions cannot be exclud ed. Lung bases: The lung bases demonstrate to be clear. Liver: Grossly the unopacified liver demonstrates to be normal, no focal lesions are identified. Gallbladder: Grossly the unopacified gallbladder demonstrate to be normal. Adrenal glands: Grossly the unopacified adrenal glands demonstrate to be normal. Pancreas: Grossly the unopacified pancreas demonstrate to be normal Spleen: The spleen demonstrate to be normal. Kidneys: Grossly the unopacified kidneys demonstrate to be within normal limits. There is no eviden ce for nephrolithiasis and/or hydronephrosis. GI: Grossly the unopacified stomach demonstrate food distended. Otherwise the unopacified stomach, sm all bowel and large bowel demonstrate to be within normal limits. No evidence for bowel dilatation an d/or free air. The appendix is normal. The left-sided colon/sigmoid colon demonstrates presence of mi nimal diverticulosis. Scattered mesenteric root to lymph nodes on coronal image 44/[id number]/120 : The urinary bladder demonstrate to be partially distended with no gross abnormalities. Genitalia: The uterus demonstrate to be within normal limits. There are normal adnexal structures. Abdominal aorta: The aorta demonstrate demonstrate to be within normal limits. Retroperitoneum: There is no retroperitoneal lymphadenopathy. There is no evidence for ascites and/or abnormal fluid collections. Bones: The bony structures demonstrate to be within normal limits. No evidence for compression deform ity and/or significant skeletal lesions. Soft tissues: The rest of the soft tissue and bony structures are within normal limits. IMPRESSION: No evidence for nephrolithiasis and/or hydronephrosis. Scattered mesenteric root to lymph nodes, nonspecific, but can be seen in mesenteric adenitis. Minimal diverticulosis without evidence for acute diverticulitis. Electronically signed by: Sergio Helms MD 10/17/2023 03:43 AM CDT RP Due to temporary technical issues with the PACS/Fluency reporting system, reports are being signed by the in house radiologists without review as a courtesy to insure prompt reporting. The interpreting radiologist is fully responsible for the content of the report.
== END 2023-10-17 05:25 | disposition home or self-care (01) ==
LOC: ER 00:28
DX: K57.30 Diverticulosis of large intestine without perforation or abscess without bleeding (principal)
CPT/HCPCS: 36415; 74176; 80053; 81025; 85025; 85610; 85730; 99283

== ENCOUNTER 2024-01-24 23:41 | Emergency (ER) | payer SELFPAY ==
--- OUTSIDE RECORDS SUMMARY | 2024-01-24 23:44 | XMS REPORT | Continuity of Care Document ---
Author Name Unknown Address [address] [facility] [address] [place] [address] [facility] thconnect Address [address] 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 Name Role Phone ROSEY JUNG Primary Care Physician Unava ilable ODALYS WARREN Attending Clinician Unavail able Visit, Ang-[facility] Nurse Attending Clinician Unava ilable Odalys Sarkar Attending Clinician + Doctor Unassigned, [place] Attending Clinician U navailable DIAZ_BALDEV Attending Clinician Unavailable Felisha Eastman RN Attending Clinician Unavailable MIGDALIA RODRIGUEZ Attending Clinician Unavailable Only, Ang Db Test Attending Clinician Unavailsherrell e Unknown, Attending Attending Clinician Unavailab ELIDA Gardiner Attending Clinician Unavailab Elida Gibbons Attending Clinician + [phone] Liz Harrington Attending Clinician +[phone] LIZ LENNON Attending Clinician Unavailabl e gladys Attending Clinician Unavailable MAHI JUAREZ Attending Clinician Unavailable STEVE SARAH Attending Clinician Unavailabl e SHAYAN CRONIN Attending Clinician Unavailab BOBBI Laird Attending Clinician Unavail able ASHTYN LYONS Attending Clinician Unavailable MIGUEL AGUILAR Attending Clinician Unavailable KANDICE BEARDEN Attending Clinician Unavailab vincent MERRITT_BALDEV Admitting Clinician Unavailable gladys Admitting Clinician Unavailable Payers Payer Name Policy Type Policy Number Effective Date Expirati on Date Source [place] - OUT OF [place] [id number] 2019 00:00:00 [facility]MERLY [facility] [id number] 2019 00:00:00 [place] [id number] 2019 00:00:00 MEDICAID PENDING PENDING 2019 00:00:00 Problems Condition Name Condition Details Condition Category Status Onset Date Resolution Date Last Treatment Date Treating Clinician Comments Source Other general counseling and advice for contracept yvonne management Other general counseling and advice for contracept yvonne management Disease Active 607 00:00: 00 [facility] Hematoma of labia majora Hematoma of labia majora Disease Active 4-13 00:00: 00 [facility] Susceptibl e to varicella (non-immun e), currently Susceptibl e to varicella (non-immun e), currently Disease Active 10-29 00:00: 00 [facility] Over weight Over weight Disease Active 10-26 00:00: 00 [facility] Allergies, Adverse Reactions, Alerts Allergy Name Allergy Type Status Severity Reaction(s) Onset Date Inactive Date Treating Clinician Comments Source NO KNOWN ALLERGIE S Drug Class Active [facility] Social History Social Habit Start Date Stop Date Quantity Comments Source [facility] ASSERTION [facility] Exposure to SARS-CoV-2 (event) 2022-06-05 00:00:00 2022-06-15 10:35:00 Not sure [facility] History of Social function 2021-07-07 00:00:00 2021-07-07 00:00:00 [facility] Alcohol intake 2019-12-28 00:00:00 2019-12-28 00:00:00 Ex-drinker (finding) [facility] Tobacco use and exposure 2019-10-27 00:00:00 2019-10-27 00:00:00 Smokeless tobacco non-user [facility] Sex Assigned At 2000 00:00:00 2000 00:00:00 [facility] Smoking Status Start Date Stop Date Source Never smoked tobacco [facility] Medications Ordered Medication Name Filled Medication Name Start Date Stop Date Current Medication? Ordering Clinician Indication Dosage Frequency Signature (SIG) Comments Components Source medroxyPROG ESTERone (DEPO-PROVE RA) syringe 150 mg 2021-03 0 16:30: 00 06-15 15:54 :00 No [id number] 150mg 150 mg, Intramuscu lar, [id number], 3 doses, First dose on Wed12/22/21 at 1130, Last dose on Wed06/08/22 at 1130, Routine [facility] medroxyPROG ESTERone (DEPO-PROVE RA) injection 150 mg 09-29 19:45: 00 08-31 19:44 :00 No [id number] 150mg 150 mg, Intramuscu lar, [id number], 4 doses, First dose on Wed09/29/21 at 1445, Last dose on Wed06/08/22 at 1445, Routine [facility] medroxyPROG ESTERone (DEPO-PROVE RA) injection 150 mg 07 15:00: 00 01-20 21:21 :00 No [id number] 150mg Univer [facility] Immunizations Ordered Immunization Name Filled Immunization Name Date Status Comments Source 9 2021-01-20 00:00:00 Completed [facility] HPV9 2021-01-20 00:00:00 Completed [facility] HPV9 2021-01-20 00:00:00 Completed [facility] HPV9 2021-01-20 00:00:00 Completed [facility] HPV9 2021-01-20 00:00:00 Completed [facility] HPV9 2021-01-20 00:00:00 Completed [facility] HPV9 2021-01-20 00:00:00 Completed [facility] HPV9 2021-01-20 00:00:00 Completed [facility] HPV9 2020-07-15 00:00:00 Completed [facility] HPV9 2020-07-15 00:00:00 Completed [facility] HPV9 2020-07-15 00:00:00 Completed [facility] HPV9 2020-07-15 00:00:00 Completed [facility] HPV9 2020-07-15 00:00:00 Completed [facility] HPV9 2020-07-15 00:00:00 Completed [facility] HPV9 2020-07-15 00:00:00 Completed [facility] HPV9 2020-07-15 00:00:00 Completed [facility] HPV9 2020-06-10 00:00:00 Completed [facility] HPV9 2020-06-10 00:00:00 Completed [facility] HPV9 2020-06-10 00:00:00 Completed [facility] HPV9 2020-06-10 00:00:00 Completed [facility] HPV9 2020-06-10 00:00:00 Completed [facility] HPV9 2020-06-10 00:00:00 Completed [facility] HPV9 2020-06-10 00:00:00 Completed [facility] HPV9 2020-06-10 00:00:00 Completed [facility] TDAP 2020-03-29 00:00:00 Completed [facility] TDAP 2020-03-29 00:00:00 Completed [facility] TDAP 2020-03-29 00:00:00 Completed [facility] TDAP 2020-03-29 00:00:00 Completed [facility] TDAP 2020-03-29 00:00:00 Completed [facility] TDAP 2020-03-29 00:00:00 Completed [facility] TDAP 2020-03-29 00:00:00 Completed [facility] TDAP 2020-03-29 00:00:00 Completed [facility] Influenza Virus Vaccine Quad .5 mL IM 6+ MO 2019 00:00:00 Completed [facility] Influenza Virus Vaccine Quad .5 mL IM 6+ MO 2019 00:00:00 Completed [facility] Influenza Virus Vaccine Quad .5 mL IM 6+ MO 2019 00:00:00 Completed [facility] Influenza Virus Vaccine Quad .5 mL IM 6+ MO 2019 00:00:00 Completed [facility] Influenza Virus Vaccine Quad .5 mL IM 6+ MO 2019 00:00:00 Completed [facility] Influenza Virus Vaccine Quad .5 mL IM 6+ MO 2019 00:00:00 Completed [facility] Influenza Virus Vaccine Quad .5 mL IM 6+ MO 2019 00:00:00 Completed [facility] Influenza Virus Vaccine Quad .5 mL IM 6+ MO 2019 00:00:00 Completed [facility] Influenza Virus Vaccine Quad .5 mL IM 6+ MO (FLUZONE/FLULAVAL/F LUARIX) Unknown Completed [facility] TDAP Unknown Completed [facility] HPV9 Unknown Completed [facility] Influenza Virus Vaccine Quad .5 mL IM 6+ MO (FLUZONE/FLULAVAL/F LUARIX) Unknown Completed [facility] TDAP Unknown Completed [facility] Influenza Virus Vaccine Quad .5 mL IM 6+ MO (FLUZONE/FLULAVAL/F LUARIX) Unknown Completed [facility] Vital Signs Vital Name Observation Time Observation Value Comments S ource Systolic blood pressure 2022-09-07 18:24:00 114 mm[Hg] [facility] Diastolic blood pressure 2022-09-07 18:24:00 70 mm[Hg] [facility] Heart rate 2022-09-07 18:24:00 68 /min General acute hospital Body temperature 2022-09-07 18:24:00 35.94 Peg [facility] Respiratory rate 2022-09-07 18:24:00 18 /min [facility] Body height 2022-09-07 18:24:00 170.2 cm [facility] acute hospital Body weight 2022-09-07 18:24:00 98.431 kg [facility] acute hospital BMI 2022-09-07 18:24:00 33.99 kg/m2 [facility] acute hospital Systolic blood pressure 2022-06-15 15:35:00 125 mm[Hg] [facility] Diastolic blood pressure 2022-06-15 15:35:00 79 mm[Hg] [facility] Heart rate 2022-06-15 15:35:00 73 /min Unive [facility] Body temperature 2022-06-15 15:35:00 36.17 Peg [facility] Respiratory rate 2022-06-15 15:35:00 18 /min [facility] Body height 2022-06-15 15:35:00 170.2 cm Univ [facility] Body weight 2022-06-15 15:35:00 100.29 kg Univ [facility] BMI 2022-06-15 15:35:00 34.63 kg/m2 Univ [facility] Systolic blood pressure 2022-03-17 17:00:00 131 mm[Hg] [facility] Diastolic blood pressure 2022-03-17 17:00:00 83 mm[Hg] [facility] Heart rate 2022-03-17 17:00:00 81 /min Unive [facility] Body temperature 2022-03-17 17:00:00 36.56 Peg [facility] Respiratory rate 2022-03-17 17:00:00 18 /min [facility] Body weight 2022-03-17 17:00:00 99.61 kg Univ [facility] BMI 2022-03-17 17:00:00 34.39 kg/m2 Univ [facility] Systolic blood pressure 2021 15:15:00 130 mm[Hg] [facility] Diastolic blood pressure 2021 15:15:00 80 mm[Hg] [facility] Heart rate 2021 15:15:00 82 /min Unive [facility] Body temperature 2021 15:15:00 36.56 Peg [facility] Respiratory rate 2021 15:15:00 17 /min [facility] Body height 2021 15:15:00 170.2 cm Univ [facility] Body weight 2021 15:15:00 97.206 kg Univ [facility] BMI 2021 15:15:00 33.56 kg/m2 General acute hospital Procedures Procedure Date / Time Performed Performing Clinicia n Source [facility] PATIENT FINANCIAL POLICY 2022-06-15 15:25:37 Doctor Unassigned, [place] [facility] ASSIGNMENT OF BENEFITS 2021 14:56:08 Docto r Unassigned, [place] [facility] Encounters Start Date/Time End Date/Time Encounter Type Admission Type Attending Clinicians Care Facility Care Department Encounter ID Source 2020-12-29 12:04:44 Outpatient [facility] [id number] [facility] 2020-12-28 01:50:33 Emergency [facility] [id number] [facility] 2022-12-01 09:15:00 2022-12-01 09:15:00 Outpatient ODALYS DOTY [facility] [id number] [facility] 2022-09-07 13:30:00 2022-09-07 13:43:58 Outpatient ODALYS DOTY [facility] [id number] [facility] 2022-09-07 13:30:00 2022-09-07 13:43:58 Nurse Visit Visit, Odalys Joy [facility] INSURANCE PROCESSING CLERK [facility] 1.2.840.114 350.1.13.10 4.2.7.2.686 [id number] [facility] 2022-06-15 10:00:00 2022-06-15 10:48:23 Nurse Visit Visit, Odalys Joy [facility] INSURANCE PROCESSING CLERK [facility] 1..840.114 350.1.13.10 4.2.7.2.686 [id number] [facility] 2022-06-15 10:00:00 2022-06-15 10:00:00 Outpatient ODALYS DOTY [facility] [id number] [facility] 2022-06-15 00:00:00 2022-06-15 00:00:00 Orders Only Doctor Unassigned, [place] [facility] 1.840.114 350.1.13.10 4.2.7.2.686 [id number] [facility] 2022-06-15 00:00:00 2022-06-15 00:00:00 Telephone Odalys Warren [facility] INSURANCE PROCESSING CLERK [facility] 1.2840.114 350.1.13.10 4.2.7.2.686 [id number] [facility] 2022-03-17 11:00:00 2022-03-17 11:00:00 Nurse Visit Visit, Odalys Joy [facility] INSURANCE PROCESSING CLERK [facility] 1.840.114 350.1.13.10 4.2.7.2.686 [id number] [facility] 2022-03-17 11:00:00 2022-03-17 10:59:39 Outpatient ODALYS DOTY [facility] [id number] [facility] 2021 10:00:00 2021 10:33:25 Nurse Visit Visit, Odalys Joy [facility] INSURANCE PROCESSING CLERK [facility] 1.840.114 350.1.13.10 4.2.7.2.686 [id number] [facility] 2021 10:00:00 2021 10:00:00 Outpatient ODALYS DOTY [facility] [id number] [facility] 2021 10:00:00 2021 10:00:00 Outpatient ODALYS DOTY [facility] [id number] [facility] 2021 00:00:2021 00:00:00 Orders Only Doctor Unassigned, [place] [facility] 1.840.114 350.1.13.10 4.2.7.2.686 [id number] [facility] 2021-10-21 00:00:00 2021-10-21 00:00:00 Telephone Odalys Warren [facility] INSURANCE PROCESSING CLERK [facility] 1.840.114 350.1.13.10 4.2.7.2.686 [id number] [facility] 2021-09-29 13:30:00 2021-09-29 14:51:23 Outpatient R ODALYS WARREN [facility] [id number] [facility] 2021-09-29 13:30:00 2021-09-29 14:51:23 Office Visit Odalys Warren [facility] INSURANCE PROCESSING CLERK [facility] 1.840.114 350.1.13.10 4.2.7.2.686 [id number] [facility] 2021-09-29 13:30:00 2021-09-29 14:51:23 Outpatient R ODALYS WARREN [facility] [id number] [facility] 2021-09-29 13:30:00 2021-09-29 14:51:23 Outpatient R ODALYS WARREN [facility] [id number] [facility] 2021-09-09 05:19:00 2021-09-09 05:19:00 Outpatient ALIYAH HORNER [facility] [id number] Calvin barber [facility] 2021-09-01 00:00:00 2021-09-01 00:00:00 Letter (Out) Felisha Eastman [facility] 1.840.114 350.1.13.10 4.2.7.2.686 [id number] [facility] 2021-08-31 13:30:00 2021-08-31 14:40:24 Outpatient R MIGDALIA RODRIGUEZ [facility] [id number] [facility] 2021-08-31 13:30:00 2021-08-31 13:45:00 Laboratory Only Only, Ang Db Test Unknown, Attending [facility] 1..840.114 350.1.13.10 4.2.7.2.686 [id number] [facility] 2021-07-07 13:00:00 2021-07-07 13:22:00 Outpatient ELIDA MCKEON [facility] [id number] [facility] 2021-07-07 13:00:00 2021-07-07 13:22:00 [facility] INSURANCE PROCESSING CLERK [facility] .840.114 350.1.13.10 4.2.7.2.686 [id number] [facility] 2021-04-14 10:00:00 2021-04-14 10:31:33 [facility] INSURANCE PROCESSING CLERK [facility] 1.840.114 350.1.13.10 4.2.7.2.686 [id number] [facility] 2021-04-14 10:00:00 2021-04-14 10:00:00 Outpatient ELIDA MCKEON [facility] [id number] [facility] 2021-01-20 14:16:27 2021-01-20 14:30:35 [facility] INSURANCE PROCESSING CLERK [facility] .840.114 350.1.13.10 4.2.7.2.686 [id number] [facility] 2021-01-20 14:00:00 2021-01-20 14:30:35 Outpatient R CITLALLI LIZ [facility] [id number] [facility] 2020-10-28 09:33:25 2020-10-28 09:58:36 Nurse Visit Visit, Ang-Rmchp Nurse Odalys Warren [facility] INSURANCE PROCESSING CLERK [facility] 1..840.114 350.1.13.10 4.2.7.2.686 [id number] [facility] 2020-10-28 09:30:00 2020-10-28 09:30:00 Outpatient R [facility] [id number] [facility] 2020-08-12 00:00:00 2020-08-12 00:00:00 Patient Secure Msg Odalys Warren [facility] 1..840.114 350.1.13.10 4.2.7.2.686 [id number] [facility] 2020-08-09 08:30:00 2020-08-09 08:30:00 Outpatient R [facility] [id number] [facility] 2020-08-05 09:15:00 2020-08-05 09:15:00 Outpatient R ODALYS WARREN [facility] [id number] [facility] 2020-07-15 07:55:25 2020-07-15 08:43:04 Routine Visit Odalys Warren [facility] ..840.114 350.1.13.10 4.2.7.2.686 [id number] 2020-07-15 08:00:00 2020-07-15 08:00:00 Outpatient R ODALYS WARREN [facility] [id number] [facility] 2020-07-08 07:45:2020-07-08 07:45:00 Outpatient R ODALYS WARREN [facility] [id number] [facility] 2020-06-07 09:00:00 2020-06-07 09:00:00 Outpatient R ODALYS WARREN [facility] [id number] [facility] 2020-05-31 08:30:00 2020-05-31 08:30:00 Outpatient R ODALYS WARREN [facility] [id number] [facility] 2020-05-24 11:00:00 2020-05-24 11:00:00 Outpatient R ODALYS WARREN [facility] [id number] [facility] 2020-05-10 09:45:00 2020-05-10 09:45:00 Outpatient R ODALYS WARREN [facility] [id number] [facility] 2020-04-26 09:30:00 2020-04-26 09:30:00 Outpatient R ODALYS WARREN [facility] [id number] [facility] 2020-04-12 11:00:00 2020-04-12 11:00:00 Outpatient R ODALYS WARREN [facility] [id number] [facility] 2020-03-29 09:00:00 2020-03-29 09:00:00 Outpatient R ODALYS WARREN [facility] [id number] [facility] 2020-03-29 00:00:00 2020-03-29 00:00:00 Patient Secure Msg Doctor Unassigned, [place] [facility] INSURANCE PROCESSING CLERK [facility] 1.2.840.114 350.1.13.10 4.2.7.2.686 [id number] [facility] 2020-03-15 12:45:00 2020-03-15 12:45:00 Outpatient R ODALYS WARREN [facility] [id number] [facility] 2020-02-16 08:00:00 2020-02-16 08:00:00 Outpatient R ODALYS WARREN [facility] [id number] [facility] 2020-01-29 10:30:00 2020-01-29 10:30:00 Outpatient P [facility] [id number] [facility] 2020-01-19 08:00:00 2020-01-19 08:00:00 Outpatient R ODALYS WARREN [facility] [id number] [facility] 2019-12-28 00:00:00 2019-12-28 00:00:00 Patient Secure Msg Doctor Unassigned, [place] [facility] INSURANCE PROCESSING CLERK [facility] 1.2.840.114 350.1.13.10 4.2.7.2.686 [id number] [facility] 2019 08:00:00 2019 08:00:00 Outpatient R AKINSIPEODALYS [facility] [id number] [facility] 2019-11-28 14:00:00 2019-11-28 14:00:00 Outpatient P [facility] [id number] [facility] 2019-11-24 09:45:00 2019-11-24 09:45:00 Outpatient R AKINSIPEODALYS [facility] [id number] [facility] 2019-10-31 08:30:00 2019-10-31 08:30:00 Outpatient R [facility] [id number] [facility] 2019-10-27 08:00:00 2019-10-27 08:00:00 Outpatient R AKINSIPEODALYS [facility] [id number] [facility] 2019-06-21 11:30:00 2019-06-21 11:30:00 Outpatient gladys [facility] [id number] [facility] 2017-10-21 13:18:00 2017-10-21 14:54:00 Emergency ER MAHI JUAREZ [facility] [id number] [facility] 2017-01-18 18:13:00 2017-01-18 20:20:00 Emergency ER SARAHRHONDAGE [facility] [id number] [facility] 2017-01-06 12:13:00 2017-01-06 15:36:00 Emergency ER ROSEANNE SHAYAN [facility] [id number] [facility] 2016-11-10 12:29:00 2016-11-10 13:20:00 Emergency ER BOBBI MCDONALD [facility] [id number] [facility] 2016-02-27 13:46:00 2016-02-27 16:35:00 Emergency ER ASHTYN LYONS [facility] [id number] [facility] 2016-02-21 21:00:00 2016-02-21 22:37:00 Emergency ER MIGUEL AGUILAR [facility] [id number] [facility] 2013-09-29 23:27:00 2013-09-30 01:29:00 Emergency ER KANDICE BEARDEN [facility] [id number] [facility]
[2024-01-25] MEDS ORDERED: KETOROLAC 30 MG/ML INJ ONE (00:33)
[2024-01-25] MEDS ORDERED: MAGNES/ALUMIN/SIMET 30ML UCUP ONE (00:33)
[2024-01-25] MEDS ORDERED: LIDOCAINE VISCOUS 2% 10ML ORAL SOLN ONE (00:34)
[2024-01-25 00:58] LABS: Absolute Eosinophils 0.1 K/uL (0-0.5); Absolute Lymphocytes (CBC) 2.4 K/uL (0.7-4.9); Absolute Monocytes 0.3 K/uL (0.1-1.3); Absolute Neutrophil 4.1 K/uL (1.8-8.0); Basophils % 0.4 % (0-1.3); Eosinophils % 1.2 % (0-4.4); Hematocrit 40.6 % (36.0-45.0); Hemoglobin 13.3 g/dL (12.0-15.0); Lymphocytes % 35.1 % (15.3-44.8); MCH 28.4 pg (27.0-35.0); MCHC 32.7 g/dL (32.0-36.0); MCV 86.8 fL (80-100); MPV 9.3 fL (7.6-11.3); Monocytes % 4.5 % (3.3-12.3); Neutrophils % 58.8 % (41.7-73.7); Platelets 204 thou/uL (152-406); RBC Red Blood Cell Count 4.68 M/uL (3.86-4.86); Red Cell Distribution Width 13.8 % (12.1-15.2)
[2024-01-25 01:14] LABS: ALT/SGPT 33 U/L (13-56); AST/SGOT 16 U/L (15-37); Albumin 3.6 g/dL (3.4-5.0); Alkaline Phosphatase 65 U/L (45-117); Anion Gap 7.5 mEq/L (5.0-15.0); BUN Blood Urea Nitrogen 10 mg/dL (7-18); Bicarbonate 25 mEq/L (21-32); Bilirubin Direct < 0.2 mg/dL (0-0.2); Bilirubin Indirect, Calculated 0.1 mg/dL (0.2-0.8); Bilirubin Total 0.3 mg/dL (0.2-1.0); Globulin 3.5 g/dL (2.3-3.5); Glomerular Filtration Rate 133 ml/min (=/>90); Glucose Level 120 mg/dL (74-106); Lipase 35 U/L (13-75); Potassium 3.5 mEq/L (3.5-5.1); Protein, Total 7.1 g/dL (6.4-8.2); Sodium Level 140 mEq/L (136-145); Troponin High Sensitivity < 3.0 pg/mL (<58.9)
--- NOTE | 2024-01-25 02:24 | RAD REPORT ---
EXAM: US Abdomen Limited, Gallbladder CLINICAL HISTORY: RUQ pain. TECHNIQUE: Real-time ultrasound of the right upper quadrant with image documentation. COMPARISON: No relevant prior studies available. FINDINGS: Gallbladder: Shadowing gallstones. Top normal gallbladder wall thickness. No pericholecystic fluid. nuclear cardiology technologist noted a sonographic negative Gottlieb's sign. Common bile duct: Unremarkable as visualized. No stones. No dilation. IMPRESSION: Cholelithiasis without secondary signs to suggest acute cholecystitis. Electronically signed by: Akbar Craven MD 01/25/2024 02:21 AM [facility] Due to temporary technical issues with the [employer] reporting system, reports are being signed by the in-house radiologist without review as a courtesy to ensure prompt reporting the interpreting radiologist is fully responsible for the content of the report. Transcribed Date/Time: 01/25/2024 2:24 AM
--- NOTE | 2024-01-25 02:38 | ER ---
Nurse's Notes [facility] Name: Pastora Strauss Age: 23 yrs Sex: Female : 2000 Arrival Date: 01/24/2024 Time: 23:41 Bed 25 Private MD: Diagnosis: Other cholelithiasis without obstruction Presentation: 01/23 23:45 Chief complaint: Patient states: I WAS EATING AND SUDDENLY FELT PAIN IN THE MIDDLE OF ha1 MY CHEST. 23:45 Coronavirus screen: Vaccine status: Patient reports being unvaccinated. Ebola Screen: ha1 No symptoms or risks identified at this time. Initial Sepsis Screen: Does the patient meet any 2 criteria? No. Patient's initial sepsis screen is negative. Does the patient have a suspected source of infection? No. Patient's initial sepsis screen is negative. Risk Assessment: Do you want to hurt yourself or someone else? Patient reports no desire to harm self or others. Onset of symptoms was January 25, 2024. 23:45 Method Of Arrival: Ambulatory ha1 23:45 Acuity: KRISTI 3 ha1 Triage Assessment: 23:45 General: Appears uncomfortable, Behavior is anxious. Pain: Complains of pain in chest ha1 Pain radiates to back Pain currently is 7 out of 10 on a pain scale. Quality of pain is described as pressure. Neuro: Level of Consciousness is awake, alert, obeys commands, Oriented to person, place, time, situation. Cardiovascular: Capillary refill < 3 seconds Patient's skin is warm and dry. Respiratory: Airway is patent Respiratory effort is even, unlabored, Respiratory pattern is symmetrical. Historical: - Allergies: 23:45 No Known Allergies; ha1 - PMHx: 23:45 Diverticulitis; ha1 - Immunization history:: Adult Immunizations up to date. - Infectious Disease History:: Denies. - Social history:: Smoking status: Patient reports the use of cigarette tobacco products, denies chronic smoking, but will smoke occasionally. - Family history:: not pertinent. Screenin/26 02:47 [facility] ED Fall Risk Assessment (Adult) History of falling in the last 3 months, jb4 including since admission No falls in past 3 months (0 pts) Confusion or Disorientation No (0 pts) Intoxicated or Sedated No (0 pts) Impaired Gait No (0 pts) Mobility Assist Device Used No (0 pt) Altered Elimination No (0 pt) Score/Fall Risk Level 0 - 2 = Low Risk Oriented to surroundings, Maintained a safe environment. Abuse screen: Denies threats or abuse. Nutritional screening: No deficits noted. Tuberculosis screening: No symptoms or risk factors identified. Assessment: 00:00 General: Appears in no apparent distress. comfortable, Behavior is calm, cooperative, jb4 appropriate for age. Pain: Complains of pain in chest Pain does not radiate. Pain currently is 8 out of 10 on a pain scale. Neuro: Level of Consciousness is awake, alert, obeys commands, Oriented to person, place, time, situation. Cardiovascular: Patient's skin is warm and dry. Respiratory: Airway is patent Respiratory effort is even, unlabored, Respiratory pattern is regular, symmetrical. Derm: Skin is intact, Skin is pink, warm \T\ dry. Musculoskeletal: Circulation, motion, and sensation intact. Range of motion: intact in all extremities. 01:50 Reassessment: Patient appears in no apparent distress at this time. Patient and/or jb4 family updated on plan of care and expected duration. Pain level reassessed. Patient is alert, oriented x 3, equal unlabored respirations, skin warm/dry/pink. Vital Signs: 01/23 23:45 BP 130 / 87; Pulse 95; Resp 16 S; Temp 97.2; Pulse Ox 100% on R/A; Weight 98.88 kg; ha1 Height 5 ft. 7 in. ; 01/24 01:30 BP 102 / 48; Pulse 63; Resp 16; Pulse Ox 98% on R/A; jb4 02:47 BP 106 / 67; Pulse 60; Resp 16; Pulse Ox 98% on R/A; jb4 01/23 23:45 Body Mass Index 34.14 (98.88 kg, 170.18 cm) ha1 ED Course: 01/23 23:43 Patient arrived in ED. jj6 23:49 Pawel Hawkins MD is Attending Physician. rt 01/24 00:04 Triage completed. ha1 00:20 Inserted saline lock: 18 gauge in left antecubital area, using aseptic technique. Blood jb4 collected. 00:21 Lipase Sent. jb4 00:21 Test, Serum Sent. jb4 00:21 LFT's Sent. jb4 00:22 Troponin HS Sent. jb4 00:22 CBC with Diff Sent. jb4 00:22 Basic Metabolic Panel Sent. jb4 00:38 US Abdomen Limited In Process Unspecified. EDMS 01:04 XRAY Chest (1 view) In Process Unspecified. EDMS 01:48 Gabe Garber, RN is Primary Nurse. jb4 02:38 Gabe Solis MD is Referral Physician. rt 02:47 No provider procedures requiring assistance completed. IV discontinued, intact, jb4 bleeding controlled, No redness/swelling at site. Pressure dressing applied. Patient maintains SpO2 saturation greater than 95% on room air. 02:47 Patient has correct armband on for positive identification. Bed in low position. Call jb4 light in reach. Side rails up X 1. Provided Education on: discharge instructions.. Client placed on continuous cardiac and pulse oximetry monitoring. NIBP monitoring applied. Administered Medications: 00:38 Drug: Ketorolac IVP 15 mg IVP once Route: IVP; Site: left antecubital; jb4 00:38 Drug: GI Cocktail without - (Maalox PO 30 ml, Lidocaine Mucous Membrane 2 % 15 jb4 ml) PO once Route: PO; Medication: 02:47 VIS not applicable for this client. jb4 Outcome: 02:38 Discharge ordered by MD. rt 02:47 Discharged to home ambulatory, jb4 02:47 Condition: stable 02:47 Discharge instructions given to patient, Instructed on discharge instructions, follow up and referral plans. Demonstrated understanding of instructions, follow-up care, Prescriptions given X 1, 02:49 Patient left the ED. jb4 Signatures: Dispatcher [employer] EDSD Gabe Garber RN RN jb4 Abril Rabago jj6 Julissa Shah RN RN ha1 Pawel Hawkins MD MD rt Corrections: (The following items were deleted from the chart) 00:04 01/23 23:45 PSHx: Tonsillectomy; tristan hudson
--- NOTE | 2024-01-25 02:39 | EDPHYS ---
Physician Documentation [facility] Name: Pastora Strauss Age: 23 yrs Sex: Female : 2000 Arrival Date: 01/24/2024 Time: 23:41 Bed 25 Private MD: ED Physician Pawel Hawkins HPI: 01/24 00:33 This 23 yrs old Female presents to ER via Ambulatory with complaints of Chest rt Pain. 00:33 Patient was eating pizza up to about 30 minutes ago when she had acute onset of the rt pain to the lower chest, upper abdomen. Has no associated nausea, vomiting. Denies difficulty breathing. Denies other acute complaints at this time, symptoms are moderate in severity, no other aggravating alleviating factors.. Historical: - Allergies: 01/23 23:45 No Known Allergies; ha1 - PMHx: 23:45 Diverticulitis; ha1 - Immunization history:: Adult Immunizations up to date. - Infectious Disease History:: Denies. - Social history:: Smoking status: Patient reports the use of cigarette tobacco products, denies chronic smoking, but will smoke occasionally. - Family history:: not pertinent. ROS: 01/24 00:33 Constitutional: Negative for fever, chills, and weight loss, Respiratory: Negative for rt shortness of breath, cough, wheezing, and pleuritic chest pain, MS/Extremity: Negative for injury and deformity, Skin: Negative for injury, rash, and discoloration, Neuro: Negative for headache, weakness, numbness, tingling, and seizure, Cardiovascular: Positive for chest pain, Negative for edema, Respiratory: Positive for Abdomen/GI: Positive for abdominal pain, Negative for vomiting, Exam: 00:33 Constitutional: This is a well developed, well nourished patient who is awake, alert, rt and in no acute distress. Head/Face: Normocephalic, atraumatic. Chest/axilla: Normal chest wall appearance and motion. Nontender with no deformity. No lesions are appreciated. Cardiovascular: Regular rate and rhythm with a normal S1 and S2. No gallops, murmurs, or rubs. Normal PMI, no JVD. No pulse deficits. Respiratory: Lungs have equal breath sounds bilaterally, clear to auscultation and percussion. No rales, rhonchi or wheezes noted. No increased work of breathing, no retractions or nasal flaring. Skin: Warm, dry with normal turgor. Normal color with no rashes, no lesions, and no evidence of cellulitis. MS/ Extremity: Pulses equal, no cyanosis. Neurovascular intact. Full, normal range of motion. Neuro: Awake and alert, GCS 15, oriented to person, place, time, and situation. Cranial nerves II-XII grossly intact. Motor strength 5/5 in all extremities. Sensory grossly intact. Cerebellar exam normal. Normal gait. 00:33 ECG was reviewed by the Attending Physician. 00:33 Abdomen/GI: Tenderness to the epigastrium without guarding, rebound, distention, Vital Signs: 01/23 23:45 BP 130 / 87; Pulse 95; Resp 16 S; Temp 97.2; Pulse Ox 100% on R/A; Weight 98.88 kg; ha1 Height 5 ft. 7 in. ; 01/24 01:30 BP 102 / 48; Pulse 63; Resp 16; Pulse Ox 98% on R/A; jb4 02:47 BP 106 / 67; Pulse 60; Resp 16; Pulse Ox 98% on R/A; jb4 01/23 23:45 Body Mass Index 34.14 (98.88 kg, 170.18 cm) ha1 MDM: 01/23 23:59 Medical Screening Exam initiated rt 01/24 03:06 Differential diagnosis: ACS, pneumonia, pancreatitis, cholecystitis, cholelithiasis. rt HEART Score: History: Slightly Suspicious (0), ECG: Normal (0), Age: < or = 45 years (0), Risk Factors: No Risk Factors Known (0), Troponin: < or = 1 x Normal Limit (0), Total Score = 0. Data reviewed: vital signs, nurses notes, lab test result(s), EKG, radiologic studies. I considered the following discharge prescriptions or medication management in the emergency department Medications were administered in the Emergency Department. See MAR. Test considered but Not performed: CT: No signs or symptoms to suggest diverticulitis, appendicitis, CT scan is not indicated. Counseling: I had a detailed discussion with the patient and/or guardian regarding the historical points, exam findings, and any diagnostic results supporting the discharge/admit diagnosis, lab results, radiology results, the need for outpatient follow up, to return to the emergency department if symptoms worsen or persist or if there are any questions or concerns that arise at home. Response to treatment: the patient's symptoms have markedly improved after treatment. 01/24 00:06 Order name: Basic Metabolic Panel; Complete Time: 01:15 rt 01/24 00:06 Order name: CBC with Diff; Complete Time: 01:15 rt 01/24 00:06 Order name: LFT's; Complete Time: :15 rt 01/24 00:06 Order name: Troponin HS; Complete Time: :15 rt 01/24 00:06 Order name: Lipase; Complete Time: :15 rt 01/24 00:06 Order name: Test, Serum; Complete Time: :15 rt 01/24 00:06 Order name: XRAY Chest (1 view) rt 01/24 00:06 Order name: US Abdomen Limited rt 01/24 00:06 Order name: EKG; Complete Time: 00:06 rt 01/24 00:06 Order name: Cardiac monitoring; Complete Time: 00:22 rt 01/24 00:06 Order name: EKG - Nurse/Tech; Complete Time: 00:06 rt 01/24 00:06 Order name: IV Saline Lock; Complete Time: 00: rt 01/24 00:06 Order name: Labs collected and sent; Complete Time: 00: rt 01/24 00:06 Order name: O2 Per Protocol; Complete Time: 00:22 rt 01/24 00:06 Order name: O2 Sat Monitoring; Complete Time: 00:22 rt EC:33 Rate is 87 beats/min. Rhythm is regular, Normal Sinus Rhythm with No ectopy. QRS [place] rt is Normal. [place] interval is normal. QRS interval is normal. QT interval is normal. No Q waves. T waves are Normal. No ST changes noted. Interpreted by me. Administered Medications: 00:38 Drug: Ketorolac IVP 15 mg IVP once Route: IVP; Site: left antecubital; jb4 00:38 Drug: GI Cocktail without - (Maalox PO 30 ml, Lidocaine Mucous Membrane 2 % 15 jb4 ml) PO once Route: PO; Disposition Summary: 01/25/24 02:38 Discharge Ordered Notes: Location: Home rt Problem: new rt Symptoms: have improved rt Condition: Stable rt Diagnosis - Other cholelithiasis without obstruction rt Followup: rt - With: Gabe Solis MD - When: 2 - 3 days - Reason: Discharge Instructions: - Discharge Summary Sheet rt - Cholelithiasis rt Forms: - Work release form ha1 - Medication Reconciliation Form rt - Antibiotic Education rt - Prescription Opioid Use rt - Patient Portal Instructions rt - Leadership Thank You Letter rt Signatures: Dispatcher [employer] Gabe Lay, RN RN jb4 Julissa Shah RN RN ha1 Pawel Hawkins MD MD rt Corrections: (The following items were deleted from the chart) 00:01/23 23:45 PSHx: Tonsillectomy; ha1 ha1 01/24 00:07 00:06 BASIC METABOLIC PANEL+C.LAB.BRZ ordered. EDMS EDMS 00: 00:06 CBC+H.LAB.BRZ ordered. EDMS EDMS 00:07 00:06 HEPATIC FUNCTION+C.LAB.BRZ ordered. EDMS EDMS 00:07 00:06 Troponin High Sensitivity+C.LAB.BRZ ordered. EDMS EDMS 00:07 00:06 LIPASE+C.LAB.BRZ ordered. EDMS EDMS 00:07 00:06 TEST, SERUM+SC.LAB.BRZ ordered. EDMS EDMS
--- NOTE | 2024-01-25 06:09 | RAD REPORT ---
EXAM DESCRIPTION: Chest Single View CLINICAL HISTORY: 23 years Female, CHEST PAIN Comparison: None IMPRESSION: No focal lung consolidation. No pleural effusion. No pneumothorax. Cardiomediastinal silhouette is within normal limits. No acute osseous abnormality. Electronically signed by: Russ Dunaway DO 01/25/2024 02:23 AM [facility] 9 Due to temporary technical issues with the [employer] reporting system, reports are being jose d by the in-house radiologist without review as a courtesy to ensure prompt reporting the interpreting radiologist is fully responsible for the content of the report. Transcribed Date/Time: 01/25/2024 6:09 AM
[2024-01-25 09:56] VITALS: TEMP 97.2
[2024-01-25 10:02] VITALS: O2SAT 98
[2024-01-25 10:07] VITALS: BP 106/67
--- NOTE | 2024-01-26 11:37 | EKG ---
Test Date: 2024-01-24 Test Time: 23:51:26 Computer Repairer: GALLITO MEASUREMENT RESULTS: Intervals: Rate: 87 IL: 146 QRSD: 98 QT: 376 QTc: 452 [place]: P: 54 IL: 146 QRS: 43 T: 58 INTERPRETIVE STATEMENTS: Normal sinus rhythm Normal ECG Compared to ECG 08/26/2021 23:10:48 Sinus tachycardia no longer present Myocardial infarct finding no longer present Prolonged QT interval no longer present Electronically Signed On 01-26-24 11:32:35 [employer]ESS OPERATOR by Iraj Nguyen
== END 2024-01-25 02:49 | disposition home or self-care (01) ==
LOC: ER 23:41
DX: K80.80 Other cholelithiasis without obstruction (principal)
CPT/HCPCS: 36415; 71045; 76705; 80048; 80076; 83690; 84484; 84703; 85025; 93005; 96374; 99284

== ENCOUNTER 2024-07-11 22:56 | Emergency (ER) | payer OTHER, SELFPAY ==
--- OUTSIDE RECORDS SUMMARY | 2024-07-11 22:59 | XMS REPORT | Continuity of Care Document ---
Author Name Unknown Address [address] [place] [address] [facility] Address [address] [place] [address] Care Team Providers Care Bucket Hooker Name Role Phone ROSEY JUNG Primary Care Physician Unava ilable ODALYS WARREN Attending Clinician Unavail able Visit, Ang-Rmchp Nurse Attending Clinician Unava ilable Odalys Sarkar Attending Clinician + Doctor Unassigned, [place] Attending Clinician U navailable DIAZ_BALDEV Attending Clinician Unavailable Felisha Eastman RN Attending Clinician Unavailable MIGDALIA RODRIGUEZ Attending Clinician Unavailable Only, Ang Db Test Attending Clinician Unavailsherrell e Unknown, Attending Attending Clinician Unavailab ELIDA Gardiner Attending Clinician Unavailab Elida Gibbons Attending Clinician + [phone] Liz Harrington Attending Clinician [phone] LIZ LENNON Attending Clinician Unavailabl e gladys [...] Date Expirati on Date Source [place] OUT [place] [id number] 2019 00:00:00 [facility] [id number] 2019 00:00:00 [place] [id number] 2019 00:00:00 MEDICAID PENDING PENDING 2019 00:00:00 Problems Condition Name Condition Details Condition Category Status Onset Date Resolution Date Last Treatment Date Treating Clinician Comments Source Other general counseling and advice for contracept yvonne management Other general counseling and advice for contracept yvonne management Disease Active 607 00:00: 00 [facility] Hematoma of labia majora Hematoma of labia majora Disease Active 4-13 00:00: 00 [facility] Susceptibl e to varicella (non-immun e), currently Susceptibl e to varicella (non-immun e), currently Disease Active 10-29 00:00: 00 [facility] Over weight Over weight Disease Active 10-26 00:00: 00 [facility] Allergies, Adverse Reactions, Alerts Allergy Name Allergy Type Status Severity Reaction(s) Onset Date Inactive Date Treating Clinician Comments Source NO KNOWN ALLERGIE S Drug Class Active [facility] Social History Social Habit Start Date Stop Date Quantity Comments Source [facility]ION [facility] Exposure to SARS-CoV-2 (event) 2022-06-05 00:00:00 2022-06-15 10:35:00 Not sure [facility] History of Social function 2021-07-07 00:00:00 2021-07-07 00:00:00 [facility] Alcohol intake 2019-12-28 00:00:00 2019-12-28 00:00:00 Ex-drinker (finding) [facility] Tobacco use and exposure 2019-10-27 00:00:00 2019-10-27 00:00:00 Smokeless tobacco non-user [facility] Sex Assigned At 2000 00:00:00 2000 00:00:00 [facility] Smoking Status Start Date Stop Date Source Never smoked tobacco [facility] Medications Ordered Medication Name Filled Medication Name Start Date Stop Date Current Medication? Ordering Clinician Indication Dosage Frequency Signature (SIG) Comments Components Source medroxyPROG ESTERone (DEPO-PROVE RA) syringe 150 mg 2021-03 0 16:30: 00 06-15 15:54 :00 No [id number] 150mg 150 mg, Intramuscu lar, [id number], 3 doses, First dose on Wed12/22/21 at 1130, Last dose on Wed06/08/22 at 1130, Routine [facility] medroxyPROG ESTERone (DEPO-PROVE RA) injection 150 mg 09-29 19:45: 00 08-31 19:44 :00 No [id number] 150mg 150 mg, Intramuscu lar, [id number], 4 doses, First dose on Wed09/29/21 at 1445, Last dose on Wed06/08/22 at 1445, Routine [facility] medroxyPROG ESTERone (DEPO-PROVE RA) injection 150 mg 08-05 15:00: 00 01-20 21:21 :00 No [id number] 150mg Univer [facility] Immunizations Ordered Immunization Name Filled Immunization Name Date Status Comments Source HPV9 2021-01-20 00:00:00 Completed [facility] HPV9 2021-01-20 00:00:00 Completed [facility] HPV9 2021-01-20 00:00:00 Completed [facility] HPV9 2021-01-20 00:00:00 Completed [facility] HPV9 2021-01-20 00:00:00 Completed [facility] HPV9 2021-01-20 00:00:00 Completed [facility] HPV9 2021-01-20 00:00:00 Completed [facility] HPV9 2021-01-20 00:00:00 Completed [facility] Influenza Virus Vaccine Quad .5 mL IM 6+ MO (FLUZONE/FLULAVAL/F LUARIX) 2020-08-12 00:00:00 Completed [facility] TDAP 2020-08-12 00:00:00 Completed [facility] HPV9 2020-08-12 00:00:00 Completed [facility] HPV9 2020-07-15 00:00:00 Completed [facility] HPV9 2020-07-15 00:00:00 Completed [facility] HPV9 2020-07-15 00:00:00 Completed [facility] HPV9 2020-07-15 00:00:00 Completed [facility] HPV9 2020-07-15 00:00:00 Completed [facility] HPV9 2020-07-15 00:00:00 Completed [facility] HPV9 2020-07-15 00:00:00 Completed [facility] HPV9 2020-07-15 00:00:00 Completed [facility] HPV9 2020-06-10 00:00:00 Completed [facility] HPV9 2020-06-10 00:00:00 Completed [facility] HPV9 2020-06-10 00:00:00 Completed [facility] HPV9 2020-06-10 00:00:00 Completed [facility] HPV9 2020-06-10 00:00:00 Completed [facility] HPV9 2020-06-10 00:00:00 Completed [facility] HPV9 2020-06-10 00:00:00 Completed [facility] HPV9 2020-06-10 00:00:00 Completed [facility] TDAP 2020-03-29 00:00:00 Completed [facility] TDAP 2020-03-29 00:00:00 Completed [facility] TDAP 2020-03-29 00:00:00 Completed [facility] TDAP 2020-03-29 00:00:00 Completed [facility] TDAP 2020-03-29 00:00:00 Completed [facility] TDAP 2020-03-29 00:00:00 Completed [facility] TDAP 2020-03-29 00:00:00 Completed [facility] TDAP 2020-03-29 00:00:00 Completed [facility] Influenza Virus Vaccine Quad .5 mL IM 6+ MO (FLUZONE/FLULAVAL/F LUARIX) 2020-03-29 00:00:00 Completed [facility] TDAP 2020-03-29 00:00:00 Completed [facility] Influenza Virus Vaccine Quad .5 mL IM 6+ MO (FLUZONE/FLULAVAL/F LUARIX) 2019-12-28 00:00:00 Completed [facility] Influenza Virus Vaccine Quad .5 mL IM 6+ MO 2019 00:00:00 Completed [facility] Influenza Virus Vaccine Quad .5 mL IM 6+ MO 2019 00:00:00 Completed [facility] Influenza Virus Vaccine Quad .5 mL IM 6+ MO 2019 00:00:00 Completed [facility] Influenza Virus Vaccine Quad .5 mL IM 6+ MO 2019 00:00:00 Completed [facility] Influenza Virus Vaccine Quad .5 mL IM 6+ MO 2019 00:00:00 Completed [facility] Influenza Virus Vaccine Quad .5 mL IM 6+ MO 2019 00:00:00 Completed [facility] Influenza Virus Vaccine Quad .5 mL IM 6+ MO 2019 00:00:00 Completed [facility] Influenza Virus Vaccine Quad .5 mL IM 6+ MO 2019 00:00:00 Completed [facility] Vital Signs Vital Name Observation Time Observation Value Comments S ource Systolic blood pressure 2022-09-07 18:24:00 114 mm[Hg] [facility] Diastolic blood pressure 2022-09-07 18:24:00 70 mm[Hg] [facility] Heart rate 2022-09-07 18:24:00 68 /min [facility] Body temperature 2022-09-07 18:24:00 35.94 Peg [facility] Respiratory rate 2022-09-07 18:24:00 18 /min [facility] Body height 2022-09-07 18:24:00 170.2 cm [facility] Body weight 2022-09-07 18:24:00 98.431 kg [facility] BMI 2022-09-07 18:24:00 33.99 kg/m2 Univ [facility] Systolic blood pressure 2022-06-15 15:35:00 125 mm[Hg] [facility] Diastolic blood pressure 2022-06-15 15:35:00 79 mm[Hg] [facility] Heart rate 2022-06-15 15:35:00 73 /min Unive [facility] Body temperature 2022-06-15 15:35:00 36.17 Peg [facility] Respiratory rate 2022-06-15 15:35:00 18 /min [facility] Body height 2022-06-15 15:35:00 170.2 cm [facility] Body weight 2022-06-15 15:35:00 100.29 kg [facility] BMI 2022-06-15 15:35:00 34.63 kg/m2 Univ [facility] Systolic blood pressure 2022-03-17 17:00:00 131 mm[Hg] [facility] Diastolic blood pressure 2022-03-17 17:00:00 83 mm[Hg] [facility] Heart rate 2022-03-17 17:00:00 81 /min Unive [facility] Body temperature 2022-03-17 17:00:00 36.56 Peg [facility] Respiratory rate 2022-03-17 17:00:00 18 /min [facility] Body weight 2022-03-17 17:00:00 99.61 kg [facility] BMI 2022-03-17 17:00:00 34.39 kg/m2 Univ [facility] Systolic blood pressure 2021 15:15:00 130 mm[Hg] [facility] Diastolic blood pressure 2021 15:15:00 80 mm[Hg] [facility] Heart rate 2021 15:15:00 82 /min Unive [facility] Body temperature 2021 15:15:00 36.56 Peg [facility] Respiratory rate 2021 15:15:00 17 /min [facility] Body height 2021 15:15:00 170.2 cm [facility] Body weight 2021 15:15:00 97.206 kg [facility] BMI 2021 15:15:00 33.56 kg/m2 [facility] Procedures Procedure Date / Time Performed Performing Clinicia n Source [facility] PATIENT FINANCIAL POLICY 2022-06-15 15:25:37 Doctor Unassigned, [place] [facility] ASSIGNMENT OF BENEFITS 2021 14:56:08 Docto r Unassigned, [place] [facility] Encounters Start Date/Time End Date/Time Encounter Type Admission Type Attending Clinicians Care Facility Care Department Encounter ID Source 2020-12-29 12:04:44 Outpatient [facility] [id number] [facility] 2020-12-28 01:50:33 Emergency [facility] [id number] [facility] 2022-12-01 09:15:00 2022-12-01 09:15:00 Outpatient R ODALYS WARREN [facility] [id number] [facility] 2022-09-07 13:30:00 2022-09-07 13:43:58 Outpatient R ODALYS WARREN [facility] [id number] [facility] 2022-09-07 13:30:00 2022-09-07 13:43:58 Nurse Visit Visit, Odalys Joy [facility] FINANCIAL ANALYSIS MANAGER [facility] & CHILD [facility] .840.114 350.1.13.10 4.2.7.2.686 [id number] [facility] 2022-06-15 10:00:00 2022-06-15 10:48:23 Nurse Visit Visit, Odalys Joy [facility] FINANCIAL ANALYSIS MANAGER [facility] & CHILD [facility] .840.114 350.1.13.10 4.2.7.2.686 [id number] [facility] 2022-06-15 10:00:00 2022-06-15 10:00:00 Outpatient ODALYS DOTY [facility] [id number] [facility] 2022-06-15 00:00:00 2022-06-15 00:00:00 Orders Only Doctor Unassigned, [place] [facility] 1.840.114 350.1.13.10 4.2.7.2.686 [id number] [facility] 2022-06-15 00:00:00 2022-06-15 00:00:00 Telephone Odalys Warren [facility] FINANCIAL ANALYSIS MANAGER [facility] & CHILD [facility] 1..840.114 350.1.13.10 4.2.7.2.686 [id number] 107 [id number] [facility] 2022-03-17 11:00:00 2022-03-17 11:00:00 Nurse Visit Visit, Jens-Rmp Nurse Odalys Warren [facility] FINANCIAL ANALYSIS MANAGER [facility] & CHILD [facility] 1.840.114 350.1.13.10 4.2.7.2.686 [id number] 107 [id number] [facility] 2022-03-17 11:00:00 2022-03-17 10:59:39 Outpatient ODALYS DOTY [facility] [id number] [facility] 2021 10:00:00 2021 10:33:25 Nurse Visit Visit, Jens-Rmdinorap Odalys Galeas [facility] FINANCIAL ANALYSIS MANAGER [facility] & CHILD [facility] 1.840.114 350.1.13.10 4.2.7.2.686 [id number] 107 [id number] [facility] 2021 10:00:00 2021 10:00:00 Outpatient R ODALYS WARREN [facility] [id number] [facility] 2021 10:00:00 2021 10:00:00 Outpatient R ODALYS WARREN [facility] [id number] [facility] 2021 00:00:00 2021 00:00:00 Orders Only Doctor Unassigned, [place] [facility] 1.2.840.114 350.1.13.10 4.2.7.2.686 [id number] [facility] 2021-10-21 00:00:00 2021-10-21 00:00:00 Telephone Odalys Warren [facility] FINANCIAL ANALYSIS MANAGER [facility] & CHILD [facility] 1.2.840.114 350.1.13.10 4.2.7.2.686 [id number] 107 [id number] [facility] 2021-09-29 13:30:00 2021-09-29 14:51:23 Outpatient R ODALYS WARREN [facility] [id number] [facility] 2021-09-29 13:30:00 2021-09-29 14:51:23 Office Visit Odalys Warren [facility] FINANCIAL ANALYSIS MANAGER [facility] & CHILD [facility] 1.2.840.114 350.1.13.10 4.2.7.2.686 [id number] [facility] 2021-09-29 13:30:00 2021-09-29 14:51:23 Outpatient R ODALYS WARREN [facility] [id number] [facility] 2021-09-29 13:30:00 2021-09-29 14:51:23 Outpatient R ODALYS WARREN [facility] [id number] [facility] 2021-09-09 05:19:00 2021-09-09 05:19:00 Outpatient ALIYAH HORNER [facility] [id number] Calvin barber [facility] Program 2021-09-01 00:00:00 2021-09-01 00:00:00 Letter (Out) Felisha Eastman [facility] 1..840.114 350.1.13.10 4.2.7.2.686 [id number] [facility] 2021-08-31 13:30:00 2021-08-31 14:40:24 Outpatient MIGDALIA FAM [facility] [id number] [facility] 2021-08-31 13:30:00 2021-08-31 13:45:00 Laboratory Only Only, Ang Db Test Unknown, Attending [facility] 1.2.840.114 350.1.13.10 4.2.7.2.686 [id number] [facility] 2021-07-07 13:00:00 2021-07-07 13:22:00 Outpatient ELIDA MCKEON [facility] [id number] [facility] 2021-07-07 13:00:00 2021-07-07 13:22:00 Nurse Visit Visit, Jens-Rmch Elida Thomas [facility] FINANCIAL ANALYSIS MANAGER [facility] & CHILD [facility] 1.2.840.114 350.1.13.10 4.2.7.2.686 [id number] 107 [id number] [facility] 2021-04-14 10:00:00 2021-04-14 10:31:33 Nurse Visit Visit, Jens-RmElida Martel [facility] FINANCIAL ANALYSIS MANAGER [facility] & CHILD [facility] 1.2.840.114 350.1.13.10 4.2.7.2.686 [id number] [facility] 2021-04-14 10:00:00 2021-04-14 10:00:00 Outpatient ELIDA MCKEON [facility] [id number] [facility] 2021-01-20 14:16:27 2021-01-20 14:30:35 Nurse Visit Visit, Jens-Rmchp Nurse Liz Lennon [facility] FINANCIAL ANALYSIS MANAGER [facility] CHILD [facility] 1..840.114 350.1.13.10 4.2.7.2.686 [id number] 107 [id number] [facility] 2021-01-20 14:00:00 2021-01-20 14:30:35 Outpatient R LIZ LENNON [facility] [id number] [facility] 2020-10-28 09:33:25 2020-10-28 09:58:36 [facility] FINANCIAL ANALYSIS MANAGER [facility] 1..840.114 350.1.13.10 4.2.7.2.686 [id number] 107 [id number] [facility] 2020-10-28 09:30:00 2020-10-28 09:30:00 Outpatient R [facility] [id number] [facility] 2020-08-12 00:00:00 2020-08-12 00:00:00 Patient Secure Msg Odalys Warren [facility] 1..840.114 350.1.13.10 4.2.7.2.686 [id number] 107 [id number] [facility] 2020-08-09 08:30:00 2020-08-09 08:30:00 Outpatient R [facility] [id number] [facility] 2020-08-05 09:15:00 2020-08-05 09:15:00 Outpatient R ODALYS WARREN [facility] [id number] [facility] 2020-07-15 07:55:25 2020-07-15 08:43:04 Routine Visit Odalys Warren [facility] FINANCIAL ANALYSIS MANAGER [facility] 1..840.114 350.1.13.10 4.2.7.2.686 [id number] 107 [id number] 2020-07-15 08:00:00 2020-07-15 08:00:00 Outpatient R ODALYS WARREN [facility] [id number] [facility] 2020-07-08 07:45:00 2020-07-08 07:45:00 Outpatient R AKINSIODALYS STANTON [facility] [id number] [facility] 2020-06-07 09:00:00 2020-06-07 09:00:00 Outpatient R ODALYS WARREN [facility] [id number] [facility] 2020-05-31 08:30:00 2020-05-31 08:30:00 Outpatient R ODALYS WARREN [facility] [id number] [facility] 2020-05-24 11:00:00 2020-05-24 11:00:00 Outpatient R AKINSIODALYS STANTON [facility] [id number] [facility] 2020-05-10 09:45:00 2020-05-10 09:45:00 Outpatient R AKINSIODALYS STANTON [facility] [id number] [facility] 2020-04-26 09:30:00 2020-04-26 09:30:00 Outpatient R AKINSIODALYS STANTON [facility] [id number] [facility] 2020-04-12 11:00:00 2020-04-12 11:00:00 Outpatient R ODALYS WARREN [facility] [id number] [facility] 2020-03-29 09:00:00 2020-03-29 09:00:00 Outpatient R AKINSIPEODALYS [facility] [id number] [facility] 2020-03-29 00:00:00 2020-03-29 00:00:00 Patient Secure Msg Doctor Unassigned, [place] [facility] FINANCIAL ANALYSIS MANAGER [facility] CHILD [facility] 1.2.840.114 350.1.13.10 4.2.7.2.686 [id number] [facility] 2020-03-15 12:45:00 2020-03-15 12:45:00 Outpatient R AKINSIROMYODALYS [facility] [id number] [facility] 2020-02-16 08:00:00 2020-02-16 08:00:00 Outpatient R AKINSIROMYODALYS [facility] [id number] [facility] 2020-01-29 10:30:00 2020-01-29 10:30:00 Outpatient P [facility] [id number] [facility] 2020-01-19 08:00:00 2020-01-19 08:00:00 Outpatient R AKINALYROMYODALYS [facility] [id number] [facility] 2019-12-28 00:00:00 2019-12-28 00:00:00 Patient Secure Msg Doctor Unassigned, [place] [facility] FINANCIAL ANALYSIS MANAGER [facility] HE[facility] 1.2.840.114 350.1.13.10 4.2.7.2.686 [id number] [facility] 2019 08:00:00 2019 08:00:00 Outpatient R TRINIROMYODALYS [facility] [id number] [facility] 2019-11-28 14:00:00 2019-11-28 14:00:00 Outpatient P [facility] [id number] [facility] 2019-11-24 09:45:00 2019-11-24 09:45:00 Outpatient R AKINSIROMYODALYS [facility] [id number] [facility] 2019-10-31 08:30:00 2019-10-31 08:30:00 Outpatient R [facility] [id number] [facility] 2019-10-27 08:00:00 2019-10-27 08:00:00 Outpatient R AKINSIPEODALYS [facility] [id number] [facility] 2019-06-21 11:30:00 2019-06-21 11:30:00 Outpatient sebastian_k MMG [id number] [facility] 2017-10-21 13:18:00 2017-10-21 14:54:00 Emergency ER MAHI JUAREZ [facility] [id number] [facility] 2017-01-18 18:13:00 2017-01-18 20:20:00 Emergency ER STEVE SARAH [facility] [id number] [facility] 2017-01-06 12:13:00 2017-01-06 15:36:00 Emergency ER ANHJAMESSHAYAN [facility] [id number] [facility] 2016-11-10 12:29:00 2016-11-10 13:20:00 Emergency ER BOBBI MCDONALD [facility] [id number] [facility] 2016-02-27 13:46:00 2016-02-27 16:35:00 Emergency ER ASHTYN LYNOS [facility] [id number] [facility] 2016-02-21 21:00:00 2016-02-21 22:37:00 Emergency ER MIGUEL AGUILAR [facility] [id number] [facility] 2013-09-29 23:27:00 2013-09-30 01:29:00 Emergency ER KANDICE BEARDEN [facility] [id number] [facility]
--- NOTE | 2024-07-12 00:47 | EDPHYS ---
Physician Documentation [facility] Name: Pastora Strauss Age: 23 yrs Sex: Female : 2000 Arrival Date: 07/11/2024 Time: 22:56 Bed 11 Private MD: ED Physician Nicolas Calderon HPI: 07/11 23:24 This 23 yrs old Female presents to ER via Ambulatory with complaints of Fall kb Injury, 4 weeks preg. 23:24 Pt is a 23 year old female who presents after falling down the stairs. States she was kb about half way down when she missed a step and fell. Reports hitting left forearm and abd. Recently found out she was and is concerned about the baby. Denies vaginal bleeding. LMP 05/18/24. A0. 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 - Infectious Disease History:: Denies. - Social history:: Smoking status: Patient denies any tobacco usage or history of. ROS: 23:22 Constitutional: As per HPI kb Exam: 23:22 Constitutional: This is a well developed, well nourished patient who is awake, alert, kb and in no acute distress. Head/Face: Normocephalic, atraumatic. ENT: Moist Mucous membranes Cardiovascular: Regular rate Respiratory: Respirations even and unlabored. No increased work of breathing. Talking in full sentences MS/ Extremity: Pulses equal, no cyanosis. Neurovascular intact. Full, normal range of motion. Neuro: Awake and alert, GCS 15, oriented to person, place, time, and situation. 23:22 Abdomen/GI: Inspection: abdomen appears normal, Bowel sounds: normal, Palpation: soft, in all quadrants, mild abdominal tenderness, in the right upper quadrant and left upper quadrant, 23:22 Skin: injury, abrasion(s), small abrasion noted, of the dorsal aspect of left forearm, Vital Signs: 23:14 BP 132 / 88; Pulse 99; Resp 19; Temp 99.2; Pulse Ox 99% ; Weight 92.99 kg; Height 5 ft. vc1 7 in. ; Pain 4/10; 23:14 Body Mass Index 32.11 (92.99 kg, 170.18 cm) vc1 23:14 Pain Scale: Adult vc1 MDM: 23:02 Medical Screening Exam initiated kb 23:24 Differential diagnosis: abrasion, contusion, fracture. Data reviewed: vital signs, kb nurses notes. 07/12 00:51 Counseling: I had a detailed discussion with the patient and/or guardian regarding the kb historical points, exam findings, and any diagnostic results supporting the discharge/admit diagnosis, the need for outpatient follow up, a family practitioner, to return to the emergency department if symptoms worsen or persist or if there are any questions or concerns that arise at home. ED course: Pt does not want to wait for ultrasound any longer. States she needs to get home to her other child. Educated on return precautions. . Administered Medications: No medications were administered Disposition: 04:37 Co-signature as Attending Physician, Nicolas Calderon MD I agree with the assessment sp4 and plan of care. I reviewed the patient's care provided by the Advanced Practice Provider and agree with the diagnosis and treatment plan. Disposition Summary: 07/12/24 00:46 Discharge Ordered Notes: Location: Home kb Condition: Stable kb Diagnosis - Fall (on) (from) other stairs and steps kb - Abrasion of left forearm kb Followup: kb - With: Emergency Department - When: As needed - Reason: Worsening of condition Followup: kb - With: Private Physician - When: 2 - 3 days - Reason: Recheck today's complaints, Continuance of care, Re-evaluation by your physician Discharge Instructions: - Discharge Summary Sheet kb - Contusion, [id number] kb - Abrasion, [id number] kb Forms: - Medication Reconciliation Form kb - Antibiotic Education kb - Prescription Opioid Use kb - Patient Portal Instructions kb - Leadership Thank You Letter kb Signatures: Dispatcher [employer] EDRebeca Wilkinson FNP-C FNP-Ckb Calcote, Vanessa, RN RN vc1 Nicolas Calderon MD MD sp4 Corrections: (The following items were deleted from the chart) 07/11 23:15 23:15 Transvaginal Ob+US.RAD.BRZ ordered. EDMS EDMS
--- NOTE | 2024-07-12 00:47 | ER ---
Nurse's Notes [facility] Name: Pastora Strauss Age: 23 yrs Sex: Female : 2000 Arrival Date: 07/11/2024 Time: 22:56 Bed 11 Private MD: Diagnosis: Fall (on) (from) other stairs and steps;Abrasion of left forearm Presentation: 07/11 23:09 Chief complaint: Patient states: fell down the stairs, half way down. c/o pain to left vc1 arm and stomach. Coronavirus screen: Client denies travel out of the [place] in the last 14 days. At this time, the client does not indicate any symptoms associated with coronavirus-19. Ebola Screen: Patient negative for fever greater than or equal to 101.5 degrees Fahrenheit, and additional compatible Ebola Virus Disease symptoms Patient denies exposure to infectious person. Patient denies travel to an Ebola-affected area in the 21 days before illness onset. No symptoms or risks identified at this time. Initial Sepsis Screen: Does the patient meet any 2 criteria? No. Patient's initial sepsis screen is negative. Does the patient have a suspected source of infection? No. Patient's initial sepsis screen is negative. Risk Assessment: Do you want to hurt yourself or someone else?. Onset of symptoms was July 11, 2024. 23:09 Method Of Arrival: Ambulatory vc1 23:09 Acuity: KRISTI 4 vc1 Triage Assessment: 23:13 General: Appears in no apparent distress. uncomfortable, Behavior is calm, cooperative, vc1 appropriate for age. Pain: Complains of pain in right upper quadrant and left upper quadrant. EENT: No deficits noted. No signs and/or symptoms were reported regarding the EENT system. Neuro: Level of Consciousness is awake, alert, obeys commands, Oriented to person, place, time, situation, Appropriate for age. Cardiovascular: Heart tones S1 S2 present Capillary refill < 3 seconds Patient's skin is warm and dry. Respiratory: Airway is patent Respiratory effort is even, unlabored, Respiratory pattern is regular, symmetrical, Breath sounds are clear bilaterally. GI: No deficits noted. No signs and/or symptoms were reported involving the gastrointestinal system. : No deficits noted. No signs and/or symptoms were reported regarding the genitourinary system. Derm: Skin is intact, is healthy with good turgor, Skin is dry, Skin is normal, Skin temperature is warm. Musculoskeletal: Circulation, motion, and sensation intact. Range of motion: intact in all extremities, Reports pain in left arm. [employer]ATION [employer]IC: 23:11 2, Living 1, LMP 05/18/2024, Verified, EDC 02/22/2025, Gestational age vc1 from LMP: 7 weeks 6 days Historical: - Allergies: 23:12 No Known Allergies; vc1 - Home Meds: 23:12 None [Active]; vc1 - PMHx: 23:12 Diverticulitis; vc1 - PSHx: 23:12 None; vc1 - Immunization history:: Adult Immunizations up to date. - Infectious Disease History:: Denies. - Social history:: Smoking status: Patient denies any tobacco usage or history of. Screenin:12 [facility] ED Fall Risk Assessment (Adult) History of falling in the last 3 months, vc1 including since admission Yes- single mechanical fall (1 pt) Confusion or Disorientation No (0 pts) Intoxicated or Sedated No (0 pts) Impaired Gait No (0 pts) Mobility Assist Device Used No (0 pt) Altered Elimination No (0 pt) Score/Fall Risk Level 0 - 2 = Low Risk Oriented to surroundings, Maintained a safe environment, Educated pt \T\ family on fall prevention, incl call for assistance when getting out of bed, Hourly rounding (assess needs \T\ fall precautionary measures) done. Abuse screen: Denies threats or abuse. Nutritional screening: No deficits noted. Tuberculosis screening: No symptoms or risk factors identified. Vital Signs: 23:14 BP 132 / 88; Pulse 99; Resp 19; Temp 99.2; Pulse Ox 99% ; Weight 92.99 kg; Height 5 ft. vc1 7 in. ; Pain 4/10; 23:14 Body Mass Index 32.11 (92.99 kg, 170.18 cm) vc1 23:14 Pain Scale: Adult vc1 ED Course: 23:00 Patient arrived in ED. gm2 23:02 Rebeca Nguyen [facility]C [facility] kb 23:02 Nicolas Calderon MD is Attending Physician. kb 23:11 Triage completed. vc1 23:12 Arm band placed on right wrist. vc1 23:13 Patient has correct armband on for positive identification. Provided Education on: Plan vc1 of care. 07/12 00:49 No provider procedures requiring assistance completed. Patient did not have IV access vc1 during this emergency room visit. Administered Medications: No medications were administered Medication: 07/11 23:13 VIS not applicable for this client. vc1 Outcome: 07/12 00:46 Discharge ordered by . micha 00:49 Discharged to home ambulatory, vc1 00:49 Condition: stable 00:49 Discharge instructions given to patient, Instructed on discharge instructions, follow up and referral plans. Demonstrated understanding of instructions, follow-up care, 00:50 Patient left the ED. vc1 Signatures: Rebeca Nguyen, [facility]-Tiffanie Moses RN RN vc1 Rukhsana Denise 2
[2024-07-12 01:02] VITALS: BP 132/88; TEMP 99.2; O2SAT 99
== END 2024-07-12 00:50 | disposition home or self-care (01) ==
LOC: ER 22:56
DX: O9A.211 Injury, poisoning and certain other consequences of external causes complicating pregnancy, first trimester (principal); S50.812A Abrasion of left forearm, initial encounter; W10.9XXA Fall (on) (from) unspecified stairs and steps, initial encounter; Z3A.01 Less than 8 weeks gestation of pregnancy
CPT/HCPCS: 99282